=== PATIENT | female | born 1930 | race Caucasian/White ===

== ENCOUNTER 2019-06-13 15:53 | Observation (INO) ==
--- OUTSIDE RECORDS SUMMARY | 2019-06-13 15:57 | External Medical Summary | Continuity of Care Document ---
:1930 Author Name Prakash Anderson, Provider Address Unavailable Unavailable , Care Team Providers Name Role Phone Kendrick Barragan [email or web address] PCP, UNKNOWN Unavailable Unavailable Problems Active medical history not documented Allergies and Adverse Reactions Allergy history not documented Medications Medications not documented Procedures Procedures not documented Immunizations Immunizations not documented Plan of Treatment Planned Observations Planned Goals not documented Results No Known Results Results not documented
[2019-06-13] MEDS ORDERED: ONDANSETRON INJ 2 MG/ML 2 ML VIAL IV STA (16:06)
--- NOTE | 2019-06-13 16:27 | XRay Report ---
SINGLE VIEW CHEST CLINICAL HISTORY: Generalized weakness. FINDINGS: An AP, portable, upright chest radiograph is compared to study dated 01/13/2018. The examina tion is degraded by portable technique and patient rotation. A single lead cardiac pacemaker is uncha nged in position and partially obscures the left mid chest. The heart is enlarged and there is athero sclerotic calcification of the thoracic aorta. The pulmonary vasculature is noncongested. Chronic int erstitial thickening is similar to previous. Trace pleural effusions are suspected with bibasilar ate lectasis. No pneumothorax is seen. The skeletal structures are osteopenic. The bony thorax is grossly intact. IMPRESSION: 1. Cardiomegaly and cardiac pacemaker. There is no radiographic evidence of congestive failure. 2. Trace pleural effusions are suspected. Electronically signed by: Manfred Alvarado M.D. 06/13/2019 4:25 PM
[2019-06-13] MEDS ORDERED: GI COCKTAIL ED USE PO ONE (16:40)
[2019-06-13 16:44] LABS: Basophils # (auto) 0.02 K/uL (0-0.2); Basophils % (auto) 0.2 %; Eosinophils # (auto) 0.39 K/uL (0-0.5); Eosinophils % (auto) 4.3 %; Hematocrit (blood only) 39.5 % (37-47); Hemoglobin 13.2 g/dL (12.0-16.0); Immature Granulocytes # (auto) 0.02 K/uL (0.00-0.02); Immature Granulocytes % (auto) 0.2 %; Lymphocytes # (auto) 3.57 K/uL (1.2-3.4); Lymphocytes % (auto) 39.8 %; Mean Corpuscular Hemoglobin 30.4 pg (25-34); Mean Corpuscular Hgb Conc 33.4 g/dL (32-36); Mean Platelet Volume 10.7 fL (7.4-10.4); Monocytes # (auto) 0.66 K/uL (0.11-0.59); Monocytes % (auto) 7.4 %; Neutrophils # (auto) 4.31 K/uL (1.4-6.5); Neutrophils % (auto) 48.1 %; Platelet Count 310 K/uL (130-400); RDW Coefficient of Variation 13.9 % (11.5-14.5); RDW Standard Deviation 46.4 fL (36.4-46.3); Red Blood Count 4.34 M/uL (4.2-5.4); White Blood Count 8.97 K/uL (4.8-10.8)
[2019-06-13 16:52] LABS: Alanine Aminotransferase 25 U/L (12-78); Albumin Level 3.4 gm/dl (3.4-5.0); Aspartate Aminotransferase 37 U/L (15-37); BUN Creatinine Ratio 24.1 (10-20); Blood Urea Nitrogen 30 mg/dl (7-18); Calcium 9.6 mg/dl (8.5-10.1); Carbon Dioxide 29 mmol/L (21-32); Chloride 97 mmol/L (98-107); Creatinine Clr Calc Pharmacy 36.4 ml/min; Est GFR (African American) 44.4; Est GFR (Non-African American) 38.3; Glucose 215 mg/dl (70-99); Lipase 437 U/L (73-393); Potassium 3.9 mmol/L (3.5-5.1); Sodium 136 mmol/L (136-145)
[2019-06-13 16:53] LABS: INR 2.7 (0.9-1.1); Prothrombin Time 25.6 Seconds (9.0-12.0)
[2019-06-13 16:55] LABS: Influenza A virus by PCR Neg for Influ A (Neg); Influenza B virus by PCR Neg for Influ B (Neg)
[2019-06-13] MEDS ORDERED: SODIUM CHLORIDE 0.9% 500 ML IV ONE (16:56)
[2019-06-13 17:03] LABS: Albumin Globulin Ratio 0.6 (0.9-2); Alkaline Phosphatase 107 U/L (45-117); Bilirubin,Total 0.4 mg/dl (0.2-1); Globulin 5.5 gm/dl (2.5-4.0); Total Protein 8.9 gm/dl (6.4-8.2); Troponin I < 0.015 ng/ml (0-0.045)
[2019-06-13 17:09] LABS: Appearance Urine Clear (Clear); Bacteria Urine Automated Negative (Negative); Bilirubin Urine Negative (Negative); Blood Urine 1+ (Negative); Color Urine Yellow; Glucose Urine UA Negative (Negative); Ketones Urine Negative (Negative); Leukocyte Esterase Urine Trace (Negative); Nitrite Urine Negative (Negative); Protein Urine Trace (Negative); RBC Urine Automated 0-4 /hpf (0-4); Specific Gravity Urine 1.014 (1.000-1.030); Urobilinogen Urine Negative (Negative)
--- NOTE | 2019-06-13 17:48 | CT Scan Report ---
CT SCAN OF THE ABDOMEN AND PELVIS WITHOUT IV CONTRAST CLINICAL HISTORY: Nausea and vomiting. COMPARISON STUDY: No priors. TECHNIQUE: CT scan of the abdomen and pelvis is performed from the lung bases to the proximal femora. Images are reviewed in the axial, sagittal, and coronal planes. IV contrast was not administered for this examination as per the referring clinician. Note that the examination was performed in signific antly suboptimal fashion without oral and IV contrast. A dose lowering technique was utilized adherin g to the principles of ALARA. CT DOSE: 1397.11 mGy.cm FINDINGS: Lung bases: The heart is enlarged and without pericardial effusion. A pacemaker lead is noted. There is a small hiatal hernia. A 7 mm pleural-based nodule is seen at the left lung base. The lung bases a re otherwise clear noting bibasilar scarring/atelectasis. Liver: The unenhanced liver is normal in size, contour, and attenuation. There is no intrahepatic mukesh iary ductal dilatation. Gallbladder: Unremarkable. Spleen: Normal in size and attenuation. Pancreas: The unenhanced pancreas is moderately atrophic and grossly unremarkable. Adrenal glands: Unremarkable. Kidneys: The unenhanced kidneys are atrophic and without hydronephrosis. There are no renal calculi i dentified. There is no evidence of contour deforming renal mass lesion. A retroaortic left renal vein is incidentally noted. Abdominal vasculature: The abdominal aorta is normal in course and caliber noting moderate atheroscle rotic calcification. Bowel: There is no bowel obstruction. There is advanced colonic diverticulosis without CT evidence of acute diverticulitis. Mild fecal retention is noted throughout the colon. The appendix is not ident ified and reported surgically absent. Peritoneum: There is no intraperitoneal free air or abdominal ascites. There is a fat-containing umbi lical hernia. Lymphadenopathy: None. Pelvic viscera: The bladder is normal as visualized. The uterus is surgically absent. No adnexal lesi on is seen. Skeletal structures: The skeletal structures are osteopenic. Mild to moderate lumbosacral spondylosis is observed. No lytic or blastic lesions are seen. IMPRESSION: 1. Suboptimal examination without oral and IV contrast. 2. No acute infectious or inflammatory findings are seen in the abdomen or pelvis. 3. Advanced colonic diverticulosis without CT evidence of acute diverticulitis. 4. Cardiomegaly and cardiac pacemaker. 5. Additional findings as above. ACT 112: Negative or not required by law. Electronically signed by: Manfred Alvarado M.D. 06/13/2019 5:46 PM
--- NOTE | 2019-06-13 18:40 | History & Physical Report ---
Date of Service June 13, 2019 Assessment & Plan (1) MARKUS (acute kidney injury): (2) Dehydration: (3) Weakness: (4) Nausea: (5) Vomiting: (6) Pickwickian syndrome: (7) DM II (diabetes mellitus, type II), controlled: (8) DNR (do not resuscitate) discussion: Hold Lasix, Obs, Med/Surg, IVFs, O2, SSI, likely here Less than 2 MNs, monitor daily labs, continue OP meds except Lasix and Aldactone, On warfarin and therapeutic. History of Present Illness 89 yo female c extensive PMH to include CKD, Obesity, Chronic combined CHF, DVT, AFIB, Insomnia, BITA, Depression, DM II, SSS, Valvular HD, HTN, HLD, and on Home O2 sec to Pickwickian syndrome presents w profound weakness and 2-3 days of Nausea, vomiting, and a decreased appetite. She was found to have MARKUS and Dehydration on her labs. No signs of infection. Flu was negative, but she looks like she has the flu. Primary Care Provider: Gely Gutierrez DO Allergies Allergy/AdvReac Type Severity Reaction Status Date / Time dicyclomine Allergy Intermediate HIVES Verified 06/13/19 16:47 Sulfa (Sulfonamide Allergy Intermediate Vomiting Verified 06/13/19 16:47 Antibiotics) tramadol Allergy Intermediate GI SYMPTOMS Verified 06/13/19 16:47 lisinopril AdvReac Severe RENAL Verified 06/13/19 16:47 COMPLICATIONS PER [facility]. lorazepam AdvReac Intermediate Drowsy Verified 06/13/19 16:47 oxycodone AdvReac Intermediate STATES Verified 06/13/19 16:47 INCREASED SEDATION WITH SEVERE N/V=OXYCODONE phentermine AdvReac Mild NERVOUSNESS Verified 06/13/19 16:47 & CONSTIPATION Home Medications Home Medications Medication Instructions Recorded Confirmed Type atorvastatin 40 mg PO DAILY 01/07/18 06/13/19 History cholecalciferol (vitamin D3) 2,000 unit PO DAILY 01/07/18 06/13/19 History sennosides-docusate sodium 2 tab PO DAILY 01/07/18 06/13/19 History [Senna-S] digoxin 125 mcg PO DAILY 06/13/19 06/13/19 History furosemide [Lasix] See Rx Instructions .ROUTE .COMPLEX 06/13/19 06/13/19 History glimepiride 2 mg PO QDB 06/13/19 06/13/19 History metformin 500 mg PO BIDM 06/13/19 06/13/19 History metoprolol tartrate See Rx Instructions .ROUTE .COMPLEX 06/13/19 06/13/19 History spironolactone 25 mg PO 3XWK 06/13/19 06/13/19 History warfarin See Rx Instructions .ROUTE .COMPLEX 06/13/19 06/13/19 History Past Med/Surg History Medical History Chronic kidney disease Congestive heart failure Deep vein thrombosis Depression Diabetes mellitus, type 2 Hypertension On home oxygen therapy Pacemaker Rheumatoid arthritis Valvular heart disease Surgical History History of hysterectomy History of total knee replacement Social History Preferred Language: Lao Communication Ability: Effective Visual Impairment: Limited Stoner Out Required: No Beliefs That Will Affect Care: None Current Living Situation: Alone Feels Safe at Home: Yes Smoking Status: Never smoker Hx Alcohol Use: No Hx Substance Use: No Physical Exam Physical Exam: ROS-No Headache, No Visual Changes, + Nausea, + Vomiting, No Fever, No Chills, No Neck Pain or Stiffness, No Chest Pain, No Palpitations, No SOB, No LANDEROS, No Cough, No Sputum, No Wheezing, No Abdominal Pain, No Diarrhea, No Hematemesis, No Hemoptysis, No Unexpected Weight Loss, No Flank pain, No Melena, No Hematochezia, No Frequency, No Urgency, No Burning, No Hematuria, No Rashes, No Diaphoresis. Appetite is Normal, Weak Physical Exam Gen-AAO x 3, NAD, Afebrile, Pleasant, obese Head-NCAT, EOMI, PERRLA, Anicteric Sclera, No Posterior Pharyngeal Erythema Neck-Supple, No JVD, No Thyromegaly, No Masses, No LAD, No Bruits Lungs-Clear to Auscultation Bilaterally, No Rales, No Rhonchi, No Wheezing, No Crepitus Chest-No S4, +S1, +S2, No S3, No Murmurs, No Rubs, No Gallops, No Ectopy Abdomen-Soft, Bowel Sounds Present, Non Tender, Non Distended, No Hepatomegaly, No Splenomegaly, No Palpable Masses, No Rebound, No Rigidity, No Guarding Musculoskeletal-Full Range of Motion Bilaterally, No CVAT Extremities-No Cyanosis, No Clubbing, No Edema Nuero-Cranial Nerves II-XII grossly intact, Motor WNL, DTRs WNL, Strength WNL, Non Focal Psych-Normal Mood Results & Data Vital Signs (Past 12 Hours) Vital Signs Temp Pulse Resp BP Pulse Ox 06/13/19 16:41 72 30 H 166/70 H 96 06/13/19 16:34 118 H 16 06/13/19 16:08 95 06/13/19 16:07 70 25 H 174/125 H 97 06/13/19 16:05 36.4 C L 81 22 174/125 H 95 06/13/19 16:00 91 H 28 H 92 Allergies dicyclomine Allergy (Intermediate, Verified 06/13/19 16:47) HIVES Sulfa (Sulfonamide Antibiotics) Allergy (Intermediate, Verified 06/13/19 16:47) Vomiting tramadol Allergy (Intermediate, Verified 06/13/19 16:47) GI SYMPTOMS lisinopril Adverse Reaction (Severe, Verified 06/13/19 16:47) RENAL COMPLICATIONS PER [facility]. lorazepam Adverse Reaction (Intermediate, Verified 06/13/19 16:47) Drowsy oxycodone Adverse Reaction (Intermediate, Verified 06/13/19 16:47) STATES INCREASED SEDATION WITH SEVERE N/V=OXYCODONE phentermine Adverse Reaction (Mild, Verified 06/13/19 16:47) NERVOUSNESS & CONSTIPATION Height/Weight/Isolation Height 5 ft 3 in Weight 104.6 kg Chemistry 06/13/19 15:45 Sodium 136 Potassium 3.9 Chloride 97 L Carbon Dioxide 29 Anion Gap 10.0 BUN 30 H Creatinine 1.26 H Glucose 215 H Urinalysis 06/13/19 16:35 Urine Color Yellow Urine Appearance Clear Urine pH 5.0 Ur Specific [place] 1.014 Urine Protein Trace H Urine Glucose (UA) Negative Urine Ketones Negative Urine Blood 1+ H Urine Nitrite Negative Urine Bilirubin Negative Code Status & VTE Plan VTE Prophylaxis Plan VTE Prophylaxis will be ordered: Yes
[2019-06-13] MEDS ORDERED: GLUCOSE 10 TABS/TUBE PO PRN (19:42)
[2019-06-13] MEDS ORDERED: GLUCAGON FOR INJ 1 MG VIAL SQ PRN (19:42)
[2019-06-13] MEDS ORDERED: CARBOHYDRATES FOR HYPOGLYCEMIA PO PRN (19:42)
[2019-06-13] MEDS ORDERED: DEXTROSE 50% 50 ML SYRINGE IV PRN (19:42)
[2019-06-13] MEDS ORDERED: ONDANSETRON INJ 2 MG/ML 2 ML VIAL IV PRN (19:42)
[2019-06-13] MEDS ORDERED: ACETAMINOPHEN 325 MG TAB PO PRN (19:42)
[2019-06-13] MEDS ORDERED: GLUCOSE 40% GEL 15 GM TUBE PO PRN (19:42)
[2019-06-13] MEDS ORDERED: ALUMINUM/MAGNESIUM SUSP 30 ML UDC PO PRN (19:42)
[2019-06-13] MEDS ORDERED: PHARMACY GLYCEMIC MGMT CONSULT PRN (19:46)
--- NOTE | 2019-06-13 19:54 | Emergency Department Note ---
Entered by Mari Andre acting as a scribe for History of Present Illness General Chief complaint: Illness Stated complaint: vomitting Time Seen by Provider: 06/13/19 15:56 Source: patient History of Present Illness Onset (ago): week(s) 1 Pain Consistency: + constant Relieved By: + none Exacerbated By: + none Associated symptoms: + denies other symptoms (denies abdominal pain and diarrhea), + malaise, + nausea/vomiting, + shortness of breath and + other (spitting up, burping); no cough, no fever/chills, no headaches and no loss of appetite Treatments prior to arrival: other (Zofran) The patient is a 89 year old female who presents to the Emergency Room with complaints of nausea, fatigue, and diaphoresis which started about a week ago and worsened today. EMS reports that the patient has been diaphoretic for a week. She is on 2 L of oxygen at home. The patient has a history of A fib, diabetes, and has a pacemaker. She also complains of fatigue, nausea, spitting up, and burping. EMS reported that the patient did vomit at home. She was given Zofran in ambulance, which seemed to help. She denies fever, headache, loss of appetite, cough, abdominal pain and diarrhea. She reports that she has been drinking plenty of water. She also complains of intermittent shortness of breath. The patient states that she has not been around anyone who is sick lately, and has been staying in her apartment for the past few weeks. Home Medications Home Medications Medication Instructions Recorded Confirmed Type atorvastatin 40 mg PO DAILY 01/07/18 06/13/19 History cholecalciferol (vitamin D3) 2,000 unit PO DAILY 01/07/18 06/13/19 History sennosides-docusate sodium 2 tab PO DAILY 01/07/18 06/13/19 History [Senna-S] digoxin 125 mcg PO DAILY 06/13/19 06/13/19 History furosemide [Lasix] See Rx Instructions .ROUTE .COMPLEX 06/13/19 06/13/19 History glimepiride 2 mg PO QDB 06/13/19 06/13/19 History metformin 500 mg PO BIDM 06/13/19 06/13/19 History metoprolol tartrate See Rx Instructions .ROUTE .COMPLEX 06/13/19 06/13/19 History spironolactone 25 mg PO 3XWK 06/13/19 06/13/19 History warfarin See Rx Instructions .ROUTE .COMPLEX 06/13/19 06/13/19 History Allergies Allergy/AdvReac Type Severity Reaction Status Date / Time dicyclomine Allergy Intermediate HIVES Verified 06/13/19 16:47 Sulfa (Sulfonamide Allergy Intermediate Vomiting Verified 06/13/19 16:47 Antibiotics) tramadol Allergy Intermediate GI SYMPTOMS Verified 06/13/19 16:47 lisinopril AdvReac Severe RENAL Verified 06/13/19 16:47 COMPLICATIONS PER [facility]. lorazepam AdvReac Intermediate Drowsy Verified 06/13/19 16:47 oxycodone AdvReac Intermediate STATES Verified 06/13/19 16:47 INCREASED SEDATION WITH SEVERE N/V=OXYCODONE phentermine AdvReac Mild NERVOUSNESS Verified 06/13/19 16:47 & CONSTIPATION Past Med/Surg History Medical History (Updated 06/13/19 @ 18:39 by Ashok Andrews DO) MARKUS (acute kidney injury) Chronic kidney disease Congestive heart failure Deep vein thrombosis Dehydration Depression Diabetes mellitus, type 2 Hypertension On home oxygen therapy Pacemaker Rheumatoid arthritis Valvular heart disease Surgical History History of hysterectomy History of total knee replacement Social History Preferred Language: Belarusian Communication Ability: Effective Visual Impairment: Limited Table Attendant Required: No Beliefs That Will Affect Care: None Current Living Situation: Alone Feels Safe at Home: Yes Smoking Status: Never smoker Hx Alcohol Use: No Hx Substance Use: No Review of Systems See HPI for pertinent positives & negatives. and A total of 10 systems reviewed and were otherwise negative Physical Exam Vital Signs Vital Signs - 24 hr 06/13/19 16:00 06/13/19 16:05 06/13/19 16:07 Temperature 36.4 C L Temperature Source Oral Pulse Rate 91 H 81 70 Pulse Rate from SpO2 Sensor 94 H 77 Respiratory Rate 28 H 22 25 H Blood Pressure 174/125 H 174/125 H Blood Pressure Mean 141 139 Pulse Oximetry 92 95 97 Oxygen Delivery Method Nasal Cannula Oxygen Flow Rate 2 Sepsis Recent Fever Within 48 Hours No Sepsis Action Taken by Nursing No Action Required 06/13/19 16:08 06/13/19 16:34 06/13/19 16:41 Temperature Temperature Source Pulse Rate 118 H 72 Pulse Rate from SpO2 Sensor 76 Respiratory Rate 16 30 H Blood Pressure 166/70 H Blood Pressure Mean 88 Pulse Oximetry 95 96 Oxygen Delivery Method Nasal Cannula Oxygen Flow Rate 2 Sepsis Recent Fever Within 48 Hours Sepsis Action Taken by Nursing GENERAL: Awake, Appears fatigued. On nasal cannula. HENT: Normocephalic, atraumatic. EYES: Normal conjunctiva. Sclera non-icteric. NECK: Supple. No nuchal rigidity. RESPIRATORY: Diminished lung bases. Normal respiratory effort. CARDIAC: Normal rate. Irregular rhythm. Extremities warm and well perfused. GI: Soft, non-distended. No tenderness to palpation. No rebound or guarding. RECTAL: Deferred. MUSCULOSKELETAL: Atraumatic. Chest examination reveals no tenderness. LOWER EXTREMITIES: 1+ bilateral pedal edema. Calves are equal size bilaterally. NEURO: Normal sensorium. No sensory or motor deficits noted. No facial droop. SKIN: Warm and slightly diaphoretic. No jaundice noted. Course Course 1558: Past medical records reviewed. The patient was evaluated in room C10. A complete history and physical exam was performed. 1803: I updated the patient on imaging results. I discussed the possibility of staying in the hospital for further treatment. The patient was agreeable to this. 180: I spoke to Dr. Andrews, [facility] hospitalist, who agreed to take over care of the patient. The patient understands and is agreeable to this plan. The patient will stay for further evaluation. Administered Medications Discontinued Medications Al Hydrox/Mg Hydrox/Simethicone () 1 dose PO ONE ONE Stop: 06/13/19 16:41 Last Admin: 06/13/19 16:49 Dose: 1 dose Documented by: [id number] Sodium Chloride (Nss) 500 mls @ 999 mls/hr IV .Q31M ONE Stop: 06/13/19 17:26 Last Infusion: 06/13/19 17:40 Dose: 0 mls/hr Documented by: [id number] Admin: 06/13/19 17:07 Dose: 999 mls/hr Documented by: [id number] Ondansetron HCl (Zofran) 4 mg IV NOW STA Stop: 06/13/19 16:07 Last Admin: 06/13/19 16:22 Dose: 4 mg Documented by: [id number] Medical Decision Making Differential Diagnosis Differential diagnosis includes: appendicitis, diverticulitis, PUD, biliary pathology, UTI, pancreatitis, obstruction, mesenteric ischemia, aortic pathology, infections, inflammatory bowel disease, renal colic, as well as others were entertained. Medical Records Attestation: I reviewed the patient's medical records. Home Medications Current Medication List: was personally reviewed by me Laboratory Data Attestation: I reviewed the patient's lab results. Result diagrams: 06/13/19 15:45 06/13/19 15:45 Lab Results 06/13/19 06/13/19 06/13/19 Range/Units 15:45 15:45 15:45 WBC 8.97 (4.8-10.8) K/uL RBC 4.34 (4.2-5.4) M/uL Hgb 13.2 (12.0-16.0) g/dL Hct 39.5 (37-47) % MCV 91.0 (80-100) fL MCH 30.4 (25-34) pg MCHC 33.4 (32-36) g/dL RDW Std Deviation 46.4 H (36.4-46.3) fL RDW Coeff of Irena 13.9 (11.5-14.5) % Plt Count 310 (130-400) K/uL MPV 10.7 H (7.4-10.4) fL Immature Gran % (Auto) 0.2 % Neut % (Auto) 48.1 % Lymph % (Auto) 39.8 % [place] % (Auto) 7.4 % Eos % (Auto) 4.3 % Baso % (Auto) 0.2 % Immature Gran # (Auto) 0.02 (0.00-0.02) K/uL Neut # (Auto) 4.31 (1.4-6.5) K/uL Lymph # (Auto) 3.57 H (1.2-3.4) K/uL [place] # (Auto) 0.66 H (0.11-0.59) K/uL Eos # (Auto) 0.39 (0-0.5) K/uL Baso # (Auto) 0.02 (0-0.2) K/uL PT 25.6 H (9.0-12.0) Seconds INR 2.7 H (0.9-1.1) Sodium 136 (136-145) mmol/L Potassium 3.9 (3.5-5.1) mmol/L Chloride 97 L (98-107) mmol/L Carbon Dioxide 29 (21-32) mmol/L Anion Gap 10.0 (3-11) BUN 30 H (7-18) mg/dl Creatinine 1.26 H (0.6-1.2) mg/dl Est Cr Clr Drug Dosing 36.4 ml/min Est GFR ( Amer) 44.4 Est GFR (Non-Af Amer) 38.3 BUN/Creatinine Ratio 24.1 H (10-20) Glucose 215 H (70-99) mg/dl Calcium 9.6 (8.5-10.1) mg/dl Magnesium 2.0 (1.8-2.4) mg/dl Total Bilirubin 0.4 (0.2-1) mg/dl AST 37 (15-37) U/L ALT 25 (12-78) U/L Alkaline Phosphatase 107 (45-117) U/L Troponin I < 0.015 (0-0.045) ng/ml Total Protein 8.9 H (6.4-8.2) gm/dl Albumin 3.4 (3.4-5.0) gm/dl Globulin 5.5 H (2.5-4.0) gm/dl Albumin/Globulin Ratio 0.6 L (0.9-2) Lipase 437 H (73-393) U/L TSH 3.070 (0.300-4.500) uIu/ml Urine Color Urine Appearance (Clear) Urine pH (4.5-7.5) Ur Specific [place] (1.000-1.030) Urine Protein (Negative) Urine Glucose (UA) (Negative) Urine Ketones (Negative) Urine Blood (Negative) Urine Nitrite (Negative) Urine Bilirubin (Negative) Urine Urobilinogen (Negative) Ur Leukocyte Esterase (Negative) Urine WBC (Auto) (0-5) /hpf Urine RBC (Auto) (0-4) /hpf U Hyaline Cast (Auto) (0-5) /lpf U Epithel Cells (Auto) (0-5) /lpf Urine Bacteria (Auto) (Negative) Influenza Type A (PCR) (Neg) Influenza Type B (PCR) (Neg) 06/13/19 06/13/19 Range/Units 16:15 16:35 WBC (4.8-10.8) K/uL RBC (4.2-5.4) M/uL Hgb (12.0-16.0) g/dL Hct (37-47) % MCV (80-100) fL MCH (25-34) pg MCHC (32-36) g/dL RDW Std Deviation (36.4-46.3) fL RDW Coeff of Irena (11.5-14.5) % Plt Count (130-400) K/uL MPV (7.4-10.4) fL Immature Gran % (Auto) % Neut % (Auto) % Lymph % (Auto) % [place] % (Auto) % Eos % (Auto) % Baso % (Auto) % Immature Gran # (Auto) (0.00-0.02) K/uL Neut # (Auto) (1.4-6.5) K/uL Lymph # (Auto) (1.2-3.4) K/uL [place] # (Auto) (0.11-0.59) K/uL Eos # (Auto) (0-0.5) K/uL Baso # (Auto) (0-0.2) K/uL PT (9.0-12.0) Seconds INR (0.9-1.1) Sodium (136-145) mmol/L Potassium (3.5-5.1) mmol/L Chloride (98-107) mmol/L Carbon Dioxide (21-32) mmol/L Anion Gap (3-11) BUN (7-18) mg/dl Creatinine (0.6-1.2) mg/dl Est Cr Clr Drug Dosing ml/min Est GFR ( Amer) Est GFR (Non-Af Amer) BUN/Creatinine Ratio (10-20) Glucose (70-99) mg/dl Calcium (8.5-10.1) mg/dl Magnesium (1.8-2.4) mg/dl Total Bilirubin (0.2-1) mg/dl AST (15-37) U/L ALT (12-78) U/L Alkaline Phosphatase (45-117) U/L Troponin I (0-0.045) ng/ml Total Protein (6.4-8.2) gm/dl Albumin (3.4-5.0) gm/dl Globulin (2.5-4.0) gm/dl Albumin/Globulin Ratio (0.9-2) Lipase (73-393) U/L TSH (0.300-4.500) uIu/ml Urine Color Yellow Urine Appearance Clear (Clear) Urine pH 5.0 (4.5-7.5) Ur Specific [place] 1.014 (1.000-1.030) Urine Protein Trace H (Negative) Urine Glucose (UA) Negative (Negative) Urine Ketones Negative (Negative) Urine Blood 1+ H (Negative) Urine Nitrite Negative (Negative) Urine Bilirubin Negative (Negative) Urine Urobilinogen Negative (Negative) Ur Leukocyte Esterase Trace H (Negative) Urine WBC (Auto) 1-5 (0-5) /hpf Urine RBC (Auto) 0-4 (0-4) /hpf U Hyaline Cast (Auto) 1-5 (0-5) /lpf U Epithel Cells (Auto) 10-20 H (0-5) /lpf Urine Bacteria (Auto) Negative (Negative) Influenza Type A (PCR) Neg for Influ A (Neg) Influenza Type B (PCR) Neg for Influ B (Neg) Imaging Data Radiologist's Impression: Radiology results as stated below per my review and the radiologist's interpretation: SINGLE VIEW CHEST CLINICAL HISTORY: Generalized weakness. FINDINGS: An AP, portable, upright chest radiograph is compared to study dated 01/13/2018. The examination is degraded by portable technique and patient rotatio n. A single lead cardiac pacemaker is unchanged in position and partially obscures the left mid chest. The heart is enlarged and there is atherosclerotic calcification of the thoracic aorta. The pulmonary vasculature is noncongested. Chronic interstitial thickening is similar to previous. Trace pleural effusions are suspected with bibasilar atelectasis. No pneumothorax is seen. The skeletal structures are osteopenic. The bony thorax is grossly intact. IMPRESSION: 1. Cardiomegaly and cardiac pacemaker. There is no radiographic evidence of congestive failure. 2. Trace pleural effusions are suspected. Electronically signed by: Manfred Alvarado M.D. 06/13/2019 4:[address] SCAN OF THE ABDOMEN AND PELVIS WITHOUT IV CONTRAST CLINICAL HISTORY: Nausea and vomiting. COMPARISON STUDY: No priors. TECHNIQUE: CT scan of the abdomen and pelvis is performed from the lung bases to the proximal femora. Images are reviewed in the axial, sagittal, and coronal planes. IV contrast was not administered for this examination as per the referring clinician. Note that the examination was performed in significantly suboptimal fashion without oral and IV contrast. A dose lowering technique was utilized adhering to the principles of ALARA. CT DOSE: 1397.11 mGy.cm FINDINGS: Lung bases: The heart is enlarged and without pericardial effusion. A pacemaker lead is noted. There is a small hiatal hernia. A 7 mm pleural-based nodule is seen at the left lung base. The lung bases are otherwise clear noting bibasilar scarring/atelectasis. Liver: The unenhanced liver is normal in size, contour, and attenuation. There is no intrahepatic biliary ductal dilatation. Gallbladder: Unremarkable. Spleen: Normal in size and attenuation. Pancreas: The unenhanced pancreas is moderately atrophic and grossly unremarkable. Adrenal glands: Unremarkable. Kidneys: The unenhanced kidneys are atrophic and without hydronephrosis. There are no renal calculi identified. There is no evidence of contour deforming renal mass lesion. A retroaortic left renal vein is incidentally noted. Abdominal vasculature: The abdominal aorta is normal in course and caliber noting moderate atherosclerotic calcification. Bowel: There is no bowel obstruction. There is advanced colonic diverticulosis without CT evidence of acute diverticulitis. Mild fecal retention is noted throughout the colon. The appendix is not identified and reported surgically absent. Peritoneum: There is no intraperitoneal free air or abdominal ascites. There is a fat-containing umbilical hernia. Lymphadenopathy: None. Pelvic viscera: The bladder is normal as visualized. The uterus is surgically absent. No adnexal lesion is seen. Skeletal structures: The skeletal structures are osteopenic. Mild to moderate mario mbosacral spondylosis is observed. No lytic or blastic lesions are seen. IMPRESSION: 1. Suboptimal examination without oral and IV contrast. 2. No acute infectious or inflammatory findings are seen in the abdomen or pelvis. 3. Advanced colonic diverticulosis without CT evidence of acute diverticulitis. 4. Cardiomegaly and cardiac pacemaker. 5. Additional findings as above. ACT 112: Negative or not required by law. Electronically signed by: Manfred Alvarado M.D. 06/13/2019 5:46 PM ECG Data Attestation: I personally reviewed and interpreted this ECG as follows: Indication: + diaphoresis Rate (beats per minute): 68 Rhythm: + atrial fibrillation ECG Intervals/blocks: + Right Bundle branch block ECG ST segments: + T-wave inversions (diffuse) ECG Findings: + Other (ocassional ventricular paced complexes) Comparison ECG Date: from (01/08/18) Change: the following changes noted (Now predominately A-fib) Blood Pressure Blood Pressure Findings: Elevated blood pressure Blood Pressure Disposition: further management by hospitalist SARANYA Narrative Continuous Cardiac Monitoring: An order was placed for continuous cardiac monitoring. The monitor shows a rate of 68 with A fib. Patient is an 89-year-old female with a past medical history of congestive heart failure, pacemaker, A. fib RVR on Coumadin, sick sinus syndrome with pacemaker, type 2 diabetes, CKD, and pickwickian syndrome presenting today via ambulance with report of vomiting. States over the past 3 weeks has been quite diap horetic and feeling weak. Denies chest pain. Breathing is at baseline. Denies fluid swelling. Denies fever. Denies diarrhea. Denies URI symptoms. Minimal her was Zofran for EMS on the way over. Basic labs, EKG, troponin were completed. CT of abdomen pelvis was ordered to evaluate for other intra- abdominal pathology although she does not have significant abdominal tenderness. INR was checked. Given some additional Zofran here as well as a GI cocktail. Seems it was be belching more than vomiting. Give small fluid bolus creatinine appears a little bit higher than the baseline available in the system here. Doubt intracranial pathology. Influenza testing was negative. No evidence of hepatitis and doubt this represents pancreatitis. No evidence of UTI. TSH within normal is. Troponin undetectable. CT abdomen pelvis without acute pathology. Reevaluation the patient still in some discomfort and appears quite weak. Discussed with her and her son recommendation for further observation ongoing in the hospital to reasonable given her complaints. States she still cannot eat. They were in agreement with plan. Discussed with the [facility] hospitalist. Impression & Plan Nausea, Weakness Discharge Plan Visit Data Chief Complaint: Illness Stated Complaint: vomitting ED Provider: Vinicio Barclay Discharge Problem: Nausea, Weakness The scribe's documentation has been prepared under my direction and personally reviewed by me in its entirety. I confirm that the note above accurately reflects all work, treatment, procedures, and medical decision making performed by me.
--- NOTE | 2019-06-13 20:07 | Pharmacy Report ---
Glycemic Control Consultation - Date of Service June 13, 2019 - Scope Scope: Glycemic Pharmacist consulted by Dr Andrews on 06/13/19 for glycemic control and to write orders per [facility] inpatient glycemic control protocol - Objective Weight: 104.6 kg Accuchecks BSG (last 24hrs): 06/13/19 15:45 Glucose 215 H Laboratory Data (last 24hrs): 06/13/19 15:45 Potassium 3.9 Carbon Dioxide 29 Anion Gap 10.0 Creatinine 1.26 H Est Cr Clr Drug Dosing 36.4 - Recent Pertinent Medications Outpatient Anti-diabetic Regimen: * Metformin 500 mg PO BIDM * Glimepiride 2 mg PO daily with breakfast * A1c pending for AM of 06/14 - Assessment & Plan Assessment & Plan: ASSESSMENT: * JERICHO is an 89 year old female who presents to [facility] ED with several days of nausea, fatigue, and diaphoresis * Patient presumed to be in MARKUS at time of admission (SCr: 1.26 mg/dL) - SCr from 2018: 0.89 mg/dL. * BSG in ED of 215 mg/dL at 1545 - pharmacy consulted at 1943 * No insulin administered so far today PLAN FOR INPATIENT GLYCEMIC CONTROL: * Holding outpatient oral diabetes medications * Basal insulin * Lantus 15 units BID * Bolus insulin * NovoLog per scale ACHS or Q6hrs while NPO * Goal Range: Low 120 mg/dL - High 150 mg/dL * Correction Factor: 30 mg/dL/unit * Nutritional / Prandial insulin per carb ratio of 1 unit per 10 grams CHO consumed * Overnight check at 0200 tonight with same parameters * Please note that the plan above was derived based on current level of insulin resistance and hospital stress. These recommendations are appropriate for inpatient admission only. Plan of care upon discharge will need to be reassessed to avoid potential outpatient hypo/hyperglycemia. Thank you.
[2019-06-13] MEDS: METOPROLOL TARTRATE 100 MG TAB PO SCH (20:34)
[2019-06-13] MEDS: NSS + 20MEQ KCL 20 MEQ/1,000 ML BAG IV SCH (20:34)
[2019-06-13] MEDS: INSULIN ASPART 100 UNITS/ML 3 ML PEN SC SCH (20:37)
[2019-06-13] MEDS ORDERED: INSULIN GLARGINE SOLOSTAR 100 UNITS/ML 3 ML PEN SC SCH (21:00)
[2019-06-14] MEDS ORDERED: INSULIN ASPART 100 UNITS/ML 3 ML PEN SC SCH (02:00)
[2019-06-14 02:10] LABS: Hematocrit (blood only) 36.3 % (37-47); Hemoglobin 11.9 g/dL (12.0-16.0); Mean Corpuscular Hgb Conc 32.8 g/dL (32-36); Mean Corpuscular Volume 91.4 fL (80-100); Mean Platelet Volume 10.2 fL (7.4-10.4); Platelet Count 262 K/uL (130-400); RDW Coefficient of Variation 13.7 % (11.5-14.5); RDW Standard Deviation 45.3 fL (36.4-46.3); Red Blood Count 3.97 M/uL (4.2-5.4); White Blood Count 6.82 K/uL (4.8-10.8)
[2019-06-14 02:19] LABS: INR 2.6 (0.9-1.1); Prothrombin Time 25.1 Seconds (9.0-12.0)
[2019-06-14 02:27] LABS: Alanine Aminotransferase 21 U/L (12-78); Albumin Level 2.9 gm/dl (3.4-5.0); Amylase 64 U/L (25-115); Aspartate Aminotransferase 32 U/L (15-37); BUN Creatinine Ratio 25.7 (10-20); Blood Urea Nitrogen 27 mg/dl (7-18); Calcium 8.8 mg/dl (8.5-10.1); Carbon Dioxide 33 mmol/L (21-32); Chloride 102 mmol/L (98-107); Creatinine Clr Calc Pharmacy 44.1 ml/min; Est GFR (African American) 55.9; Est GFR (Non-African American) 48.3; Glucose 210 mg/dl (70-99); Lipase 270 U/L (73-393); Potassium 4.3 mmol/L (3.5-5.1); Sodium 140 mmol/L (136-145)
[2019-06-14 02:32] LABS: Albumin Globulin Ratio 0.6 (0.9-2); Alkaline Phosphatase 85 U/L (45-117); Bilirubin,Total 0.4 mg/dl (0.2-1); Globulin 4.8 gm/dl (2.5-4.0); Total Protein 7.7 gm/dl (6.4-8.2); Troponin I < 0.015 ng/ml (0-0.045)
[2019-06-14 05:52] LABS: Estimated Average Glucose 206 mg/dl; Hemoglobin A1C 8.8 % (4.5-5.6)
[2019-06-14] MEDS: NSS + 20MEQ KCL 20 MEQ/1,000 ML BAG IV SCH ×2 (06:27→15:46)
[2019-06-14] MEDS ORDERED: INSULIN GLARGINE SOLOSTAR 100 UNITS/ML 3 ML PEN SC SCH (09:00)
[2019-06-14] MEDS ORDERED: SPIRONOLACTONE 25 MG TAB PO SCH (09:00)
[2019-06-14] MEDS: METOPROLOL TARTRATE 100 MG TAB PO SCH ×2 (09:33→20:23)
[2019-06-14] MEDS: DIGOXIN 0.125 MG TAB PO SCH (09:34)
[2019-06-14] MEDS: DOCUSATE SODIUM/SENNA 50/8.6MG TAB PO SCH (09:34)
[2019-06-14] MEDS: CHOLECALCIFEROL 1,000 UNITS 25 MCG TAB PO SCH (09:36)
[2019-06-14] MEDS: ATORVASTATIN 40 MG TAB PO SCH (09:37)
[2019-06-14] MEDS: INSULIN ASPART 100 UNITS/ML 3 ML PEN SC SCH ×4 (09:51→20:20)
--- NOTE | 2019-06-14 10:27 | Pharmacy Report ---
Pharmacy Glycemic Short Note 2 - Date of Service June 14, 2019 - Glycemic Short BSG Results (Last 24 hours): 06/13/19 06/13/19 06/14/19 15:45 20:03 01:51 Glucose 215 H POC Glucose 283 H 227 H 06/14/19 06/14/19 06/14/19 01:57 09:44 09:45 Glucose 210 H POC Glucose 312 H* 284 H OUTPATIENT ANTIDIABETIC REGIMEN: * Metformin 500 mg PO BIDM * Glimepiride 2 mg PO daily * HbA1c: 8.8% (06/14/19) ASSESSMENT: * LR admitted last evening - received 15 units of Lantus and 8 units of Novolog overnight * BSG this morning of 312 mg/dL was obtained after patient ate breakfast - will cover carbs only * IV fluids NS w/ 20 mEq of K+ infusing at 100 mL/hr PLAN FOR INPATIENT GLYCEMIC CONTROL: * Hold outpatient oral diabetes medications * Basal insulin * Lantus 18 units SQ this morning * Lantus scale starting this evening (see EHR for details) * Bolus insulin * NovoLog per scale ACHS or Q6hrs while NPO * Goal Range: Low 120 mg/dL - High 150 mg/dL * Correction Factor: 25 mg/dL/unit * Nutritional / Prandial insulin per carb ratio of 1 unit per 8 grams CHO consumed PLAN FOR DISCHARGE: * A1c of 8.8% demonstrates poor glycemic control (goal for this patient would be less than 8%) * If nausea/vomiting thought to be unrelated to metformin, reasonable to consider uptitrating metformin in 500 mg increments weekly to maximum dose of 1000 mg PO BIDM * Otherwise, may consider addition of third oral agent such as linagliptin 5 mg PO daily * This agent is generally well-tolerated with a low incidence of hypoglycemia
[2019-06-14] MEDS ORDERED: WARFARIN SOD 5 MG TAB PO SCH (16:00)
[2019-06-14] MEDS: INSULIN GLARGINE SOLOSTAR 100 UNITS/ML 3 ML PEN SC SCH (20:21)
--- NOTE | 2019-06-14 22:38 | Hospitalist Progress Note ---
Date of Service June 14, 2019 Assessment & Plan (1) MARKUS (acute kidney injury): Baseline serum creatinine 0.9. Creatinine at time of admission 1.26. Probable acute kidney injury secondary to N&V. Received IV fludis. Creatinine today = 1.04. Follow. (2) Vomiting: No acute findings on CT of abdomen and pelvis. Slight elevation of lipase; doubt pancreatitis. Probable gastroenteritis, improving. 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 Compensated. Holding furosemide due to GI symptoms and acute kidney injury. (4) Atrial fibrillation: Rate controlled on metoprolol and digoxin. Digoxin level 1.0. INR today = 2.6. (5) Chronic respiratory failure with hypoxia and hypercapnia: Continue supplemental O2. (6) Diabetes mellitus type 2, uncontrolled: DM type 2 on glimepiride at home. Random blood sugar at time of admission 283. Hgb A1c 8.8. Blood sugar this morning 312. Hold glimepiride. Pharmacy consulted for glycemic management. Lantus / NovoLog per protocol. (7) Do not resuscitate status: As noted. (8) DVT prophylaxis: On warfarin for AF. Ambulate. (9) Discharge planning issues: Anticipated discharge to home. Internal Medicine follow-up with Dr. Gutierrez. Admission and Anticipated Discharge Date Admission Date: June 14, 2019 Subjective Recheck for multiple problems. Patient seen in their room around 1720. Admitted yesterday with nausea, vomiting, anorexia, generalized weakness. Feels somewhat better today. GI symptoms improved; no further N/V. No diarrhea. Blood glucose > 300 this morning Review of Systems: Constitutional- no fever. Cardiac- no chest pain. Pulmonary- no cough or SOB. GI- as noted above. - no urinary symptoms. Otherwise, as noted above. Physical Exam Constitutional: no acute distress Eyes: + anicteric sclerae Respiratory: no respiratory distress Auscultation: lungs clear to auscultation bilaterally Cardiovascular: Rate/Rhythm: + irregularly irregular Vessels: no JVD Extremities: + edema (trace pretibial); no calf tenderness Gastrointestinal (Abdomen): normal bowel sounds, soft, nontender, no hepatosplenomegaly Musculoskeletal: Extremities: no cyanosis Skin: no rashes, warm and dry Psychiatric: Orientation: alert and oriented x 3 Results & Data ([facility]) Vital Signs (Past 12 Hours) Vital Signs Temp Pulse Resp BP BP Pulse Ox 06/14/19 20:18 71 137/79 06/14/19 15:11 36.5 C 67 20 154/81 H 95 Laboratory Results 06/14/19 01:59 06/14/19 01:57
--- NOTE | 2019-06-14 22:47 | Electrocardiogram Report ---
Test Reason : Blood Pressure : / mmHG Vent. Rate : 068 BPM Atrial Rate : 187 BPM P-R Int : 000 ms QRS Dur : 168 ms QT Int : 422 ms P-R-T Axes : 000 -24 -51 degrees QTc Int : 448 ms Atrial fibrillation with occasional ventricular-paced complexes Right bundle branch block T wave abnormality, consider lateral ischemia Abnormal ECG When compared with ECG of 08-JAN-2018 06:43, Ventricular pacing is now present Vent. rate has decreased BY 71 BPM Confirmed by Brijesh Frank ([id number]) on 06/14/2019 10:47:53 PM Referred By: REFERRED SELF Confirmed By:Brijesh Frank
[2019-06-15] MEDS: INSULIN ASPART 100 UNITS/ML 3 ML PEN SC SCH ×4 (00:13→12:15)
[2019-06-15 05:45] LABS: Hematocrit (blood only) 35.1 % (37-47); Hemoglobin 11.1 g/dL (12.0-16.0); Mean Corpuscular Hemoglobin 29.5 pg (25-34); Mean Corpuscular Hgb Conc 31.6 g/dL (32-36); Mean Corpuscular Volume 93.4 fL (80-100); Mean Platelet Volume 10.3 fL (7.4-10.4); Platelet Count 248 K/uL (130-400); RDW Coefficient of Variation 14.1 % (11.5-14.5); RDW Standard Deviation 47.8 fL (36.4-46.3); Red Blood Count 3.76 M/uL (4.2-5.4); White Blood Count 7.05 K/uL (4.8-10.8)
[2019-06-15 06:03] LABS: INR 2.7 (0.9-1.1); Prothrombin Time 25.6 Seconds (9.0-12.0)
[2019-06-15 06:12] LABS: BUN Creatinine Ratio 22.1 (10-20); Calcium 8.4 mg/dl (8.5-10.1); Creatinine Clr Calc Pharmacy 49.3 ml/min; Est GFR (Non-African American) 55.3; Potassium 4.3 mmol/L (3.5-5.1)
[2019-06-15] MEDS: METOPROLOL TARTRATE 100 MG TAB PO SCH (09:06)
[2019-06-15] MEDS: DIGOXIN 0.125 MG TAB PO SCH (09:06)
[2019-06-15] MEDS: ATORVASTATIN 40 MG TAB PO SCH (09:06)
[2019-06-15] MEDS: INSULIN GLARGINE SOLOSTAR 100 UNITS/ML 3 ML PEN SC SCH (09:06)
[2019-06-15] MEDS: DOCUSATE SODIUM/SENNA 50/8.6MG TAB PO SCH (09:06)
[2019-06-15] MEDS: CHOLECALCIFEROL 1,000 UNITS 25 MCG TAB PO SCH (09:06)
--- NOTE | 2019-06-15 13:36 | Hospitalist Progress Note ---
Date of Service June 15, 2019 Assessment & Plan (1) MARKUS (acute kidney injury): Baseline serum creatinine 0.9. Creatinine at time of admission 1.26. Probable acute kidney injury secondary to N&V. Received IV fludis. Creatinine today = 0.93. Follow. (2) Fever: Low grade fever associated with malaise, nausea. No leukocytosis. LFT's normal. Lipase slightly elevated. 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 No infiltrates on CXR. No acute findings on CT of abd/pelvis. UA did not appear to be infected. Probable viral syndrome, improving. Re-evaluate as necessary for persistent fever or new symptoms. 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 Compensated. Held furosemide due to GI symptoms and acute kidney injury. Discharge on usual regimen. (4) Atrial fibrillation: Rate controlled on metoprolol and digoxin. Digoxin level 1.0. INR today = 2.7. (5) Chronic respiratory failure with hypoxia and hypercapnia: Continue supplemental O2. (6) Diabetes mellitus type 2, uncontrolled: DM type 2 on glimepiride at home. Random blood sugar at time of admission 283. Hgb A1c 8.8. Blood sugar as high as 312. Held glimepiride. Pharmacy consulted for glycemic management. Receiving Lantus / NovoLog per protocol. FBS 132 today. Discharge on usual regimen with outpt f/u. (7) Do not resuscitate status: As noted. (8) DVT prophylaxis: On warfarin for AF. Ambulate. (9) Discharge planning issues: Anticipated discharge to home. Internal Medicine follow-up with Dr. Gutierrez. Admission and Anticipated Discharge Date Admission Date: June 14, 2019 Subjective Recheck for multiple problems. Patient seen in their room. Family visiting. Feels well. Anxious to go home. Malaise resolved. No further nausea. Respiratory status at baseline. Review of Systems: Constitutional- no fever. Cardiac- no chest pain. Pulmonary- no cough or SOB. GI- as noted above. - no urinary symptoms. Otherwise, as noted above. Physical Exam Constitutional: no acute distress Eyes: + anicteric sclerae Respiratory: no respiratory distress Auscultation: lungs clear to auscultation bilaterally Cardiovascular: Rate/Rhythm: + irregularly irregular Vessels: no JVD Extremities: + edema (trace pretibial); no calf tenderness Gastrointestinal (Abdomen): normal bowel sounds, soft, nontender, no hepatosplenomegaly Musculoskeletal: Extremities: no cyanosis Skin: no rashes, warm and dry Psychiatric: Orientation: alert and oriented x 3 Results & Data ([facility]) Vital Signs (Past 12 Hours) Vital Signs Temp Pulse Pulse Resp BP Pulse Ox 06/15/19 09:06 84 06/15/19 07:27 37.8 C H 84 16 163/78 H 96 Laboratory Results 06/15/19 05:26 06/15/19 05:26
--- NOTE | 2019-06-16 05:09 | Discharge Summary ---
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 She was found to have MARKUS and Dehydration on her labs. No signs of infection. Flu was negative, but she looks like she has the flu. Principal Diagnosis acute kidney injury probable viral illness Discharge Data Allergies Allergy/AdvReac Type Severity Reaction Status Date / Time dicyclomine Allergy Intermediate HIVES Verified 06/13/19 16:47 Sulfa (Sulfonamide Allergy Intermediate Vomiting Verified 06/13/19 16:47 Antibiotics) tramadol Allergy Intermediate GI SYMPTOMS Verified 06/13/19 16:47 lisinopril AdvReac Severe RENAL Verified 06/13/19 16:47 COMPLICATIONS PER [facility]. lorazepam AdvReac Intermediate Drowsy Verified 06/13/19 16:47 oxycodone AdvReac Intermediate STATES Verified 06/13/19 16:47 INCREASED SEDATION WITH SEVERE N/V=OXYCODONE phentermine AdvReac Mild NERVOUSNESS Verified 06/13/19 16:47 & CONSTIPATION Consultations 06/13/19 18:04 ED Decision to Admit Stat Ordered Studies 06/13/19 16:55 CT abd pelvis wo con Stat Hospital Course (1) MARKUS (acute kidney injury): Baseline serum creatinine 0.9. Creatinine at time of admission 1.26. Probable acute kidney injury secondary to N&V. Received IV fludis. Creatinine day of discharge 0.93. Follow. (2) Fever: Low grade fever associated with malaise, nausea. No leukocytosis. LFT's normal. Lipase slightly elevated. 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 No infiltrates on CXR. No acute findings on CT of abd/pelvis. UA did not appear to be infected. Probable viral syndrome, improving. Re-evaluate as necessary for persistent fever or new symptoms. 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 Compensated. Held furosemide due to GI symptoms and acute kidney injury. Discharge on usual regimen. (4) Atrial fibrillation: Rate controlled on metoprolol and digoxin. Digoxin level 1.0. INR day of discharge 2.7. (5) Chronic respiratory failure with hypoxia and hypercapnia: Continue supplemental O2. (6) Diabetes mellitus type 2, uncontrolled: DM type 2 on glimepiride at home. Random blood sugar at time of admission 283. Hgb A1c 8.8. Blood sugar as high as 312. Held glimepiride. Pharmacy consulted for glycemic management. Receiving Lantus / NovoLog per protocol. FBS 132 day of discharge. Discharge on usual regimen with outpt f/u. (7) Do not resuscitate status: As noted. (8) DVT prophylaxis: On warfarin for AF. Ambulate. (9) Discharge planning issues: Discharge to home. Internal Medicine follow-up with Dr. Gutierrez. Total Time Total Time Spent Total Time Spent (In Minutes): 40 Discharge Plan Discharge Items Patient Disposition: Home - Home Health Services Reason For Visit: weakness, nausea Discharge Diagnosis: dehydration probable viral infection Condition on Discharge: Good Activity: Resume your previous activity Non-emergency contact: Primary Care Provider and Hospitalist Call non-emergency contact if: you have any medication questions, your symptoms worsen and your temperature is above 101 Follow-up/Referrals: Gely Gutierrez DO [Primary Care Provider] - 06/18/19 12:45 pm (Please call [phone] or [phone] if you need to reschedule this appointment. Appointment is with Dr. Nayak (Dr. Gutierrez is on Medical Leave)) Diet: Carb Consistent or DM2 and Heart Healthy Addtl Attending Provider Instructions: MEDICATION CHANGES: None. SUMMARY OF TEST RESULTS: Blood tests showed that you were dehydrated. Chest x-ray did not show any sign of pneumonia. Flu test was negative. Urine did not show any infection. OTHER INSTRUCTIONS: Continue oxygen as before. Seek medical attention if you have: * temperature above 101 * chest pain or trouble breathing * abdominal pain, nausea, vomiting * diarrhea, dark stools or bloody stools * any unanswered questions or concerns Call [phone] if symptoms are severe. Please take good care of yourself. Call if you have any questions or problems. You can reach a [facility] hospitalist on duty at [facility] 24 hours a day by calling [phone]. My cell # is [phone]. Pending Studies at Discharge: No Stand-Alone Forms: My [facility], Smoking Cessation Medications and DC Order Prescriptions: Continued atorvastatin 40 mg Tablet 40 mg PO DAILY RF: 0 sennosides-docusate sodium [Senna-S] 8.6-50 mg Tablet 2 tab PO DAILY RF: 0 cholecalciferol (vitamin D3) 2,000 unit Capsule 2,000 unit PO DAILY RF: 0 metformin 500 mg Tablet 500 mg PO BIDM RF: 0 metoprolol tartrate 100 mg Tablet See Rx Instructions .ROUTE .COMPLEX RF: 0 warfarin 2.5 mg Tablet See Rx Instructions .ROUTE .COMPLEX RF: 0 spironolactone 25 mg Tablet 25 mg PO 3XWK RF: 0 glimepiride 2 mg Tablet 2 mg PO QDB RF: 0 furosemide [Lasix] 80 mg Tablet See Rx Instructions .ROUTE .COMPLEX RF: 0 digoxin 125 mcg (0.125 mg) Tablet 125 mcg PO DAILY RF: 0 Discharge Orders: Discharge Order (Routine); Ordered 06/15/19 Ordered By: Kendrick Zacarias Admission Data Admit Date/Time: 06/14/19 10:38 Attending Provider: Kendrick Zacarias Admit Provider: Ashok Andrews Primary Care Provider: Gely Gutierrez Other Providers: Ashok Andrews ; [facility] Other Interventions: Discharge Summary Assessment (RN) Last Done: 06/15/19 14:20 DC Date/Time DO NOT enter until pt leaves facility: 06/15/19 15:14
== END 2019-06-15 15:14 | disposition home health service (06) | DRG 683 ==
LOC: ED 15:53 → 4W 15:53 → SUATTDRO 18:19 → 4W 18:45

== ENCOUNTER 2019-07-20 21:33 | Inpatient (IN) ==
[2019-07-20] MEDS ORDERED: ONDANSETRON INJ 2 MG/ML 2 ML VIAL IV STA ×2 (21:44→23:28)
[2019-07-20 22:10] LABS: Basophils # (auto) 0.01 K/uL (0-0.2); Basophils % (auto) 0.1 %; Eosinophils # (auto) 0.11 K/uL (0-0.5); Eosinophils % (auto) 1.4 %; Hematocrit (blood only) 41.4 % (37-47); Hemoglobin 13.3 g/dL (12.0-16.0); Immature Granulocytes # (auto) 0.03 K/uL (0.00-0.02); Immature Granulocytes % (auto) 0.4 %; Lymphocytes # (auto) 1.81 K/uL (1.2-3.4); Lymphocytes % (auto) 23.6 %; Mean Corpuscular Hgb Conc 32.1 g/dL (32-36); Mean Corpuscular Volume 93.5 fL (80-100); Mean Platelet Volume 10.8 fL (7.4-10.4); Monocytes # (auto) 0.45 K/uL (0.11-0.59); Monocytes % (auto) 5.9 %; Neutrophils # (auto) 5.25 K/uL (1.4-6.5); Neutrophils % (auto) 68.6 %; Platelet Count 220 K/uL (130-400); RDW Coefficient of Variation 14.1 % (11.5-14.5); RDW Standard Deviation 48.2 fL (36.4-46.3); Red Blood Count 4.43 M/uL (4.2-5.4); White Blood Count 7.66 K/uL (4.8-10.8)
[2019-07-20 22:22] LABS: iSTAT Creatinine 1.3 mg/dl (0.6-1.3); iSTAT Hemoglobin 13.9 g/dl (12.0-16.0); iSTAT Ionized Calcium 1.1 mmol/l (1.12-1.32); iSTAT Potassium 3.9 mmol/L (3.3-5.0)
[2019-07-20 22:27] LABS: Alanine Aminotransferase 27 U/L (12-78); Albumin Level 3.8 gm/dl (3.4-5.0); Aspartate Aminotransferase 41 U/L (15-37); BUN Creatinine Ratio 25.7 (10-20); Blood Urea Nitrogen 35 mg/dl (7-18); Calcium 9.4 mg/dl (8.5-10.1); Carbon Dioxide 29 mmol/L (21-32); Chloride 100 mmol/L (98-107); Creatinine Clr Calc Pharmacy 34.6 ml/min; Est GFR (African American) 41.2; Est GFR (Non-African American) 35.5; Glucose 191 mg/dl (70-99); Lipase 656 U/L (73-393); Potassium 3.9 mmol/L (3.5-5.1); Sodium 135 mmol/L (136-145)
[2019-07-20] MEDS ORDERED: IOVERSOL 100ml IV PRN (22:29)
[2019-07-20 22:32] LABS: Albumin Globulin Ratio 0.8 (0.9-2); Alkaline Phosphatase 78 U/L (45-117); Bilirubin,Total 0.5 mg/dl (0.2-1); Globulin 4.5 gm/dl (2.5-4.0); Total Protein 8.3 gm/dl (6.4-8.2); Troponin I < 0.015 ng/ml (0-0.045)
--- NOTE | 2019-07-20 22:47 | CT Scan Report ---
ABDOMEN AND PELVIS CT WITH IV CONTRAST CT DOSE: 1323.88 mGy.cm HISTORY: Acute upper abdominal pain with nausea upper ab pain, nausea TECHNIQUE: Multiaxial CT images of the abdomen and pelvis were performed following the IV administrat ion of 88 cc of Optiray 320, A dose lowering technique was utilized adhering to the principles of AL BRENDAN. COMPARISON STUDY: CT abdomen pelvis 06/13/2019 FINDINGS: 7 mm nodular opacity of the basal right lower lobe, image 7 series 3 appears new from prior and august e secondary to atelectasis. 6 mm subpleural nodular focus of the basal left lower lobe on image 3 ser ies 3 is unchanged. Mild intralobular septal thickening of the lung bases with linear bibasilar densi ties suggestive of atelectasis/scarring. No pneumatosis or pneumoperitoneum. The imaged inferior card iac chambers are enlarged. Partially imaged pacer lead. Spleen and adrenal glands are unremarkable. Mild gallbladder distention without cholelithiasis or mukesh iary ductal dilation. Moderate pancreatic atrophy. There are a few cystic foci of the pancreatic tail measuring up to 10 mm which are nonspecific, possibly field service representative of sidebranch IPMN's. No pancre atic ductal dilation. Unremarkable appearance of the liver. No acute abnormality of the kidneys enhan ce symmetrically. lobulations are present bilaterally. No obstructive uropathy. Ureters and uri nary bladder are unremarkable. Hysterectomy with pelvic floor relaxation. No adnexal mass lesions. Mo derate calcified plaque of the abdominal aorta and branch vessels. No aneurysm. Retroaortic left katiana l vein. Unremarkable IVC. No adenopathy. No bowel obstruction or bowel wall thickening. Extensive colonic diverticulosis without acute diverti culitis. No ascites or mesenteric stranding. Study is limited secondary to patient body habitus with portions of the left lateral abdomen excluded from the [id number]. Mild fecal retention. Terminal ileum is unremarkable. The appendix is not visualized, reportedly surgically absent. There are a few stool-filled loops of small bowel within the pelvis suggestive of decreased transit. Soft tissues are unremarkable. Degenerative changes of the spine, pelvis and hips. Demineralized appearance of the miguelito ailyn. Mild lumbar levoscoliosis. IMPRESSION: 1. No acute intra-abdominal or intrapelvic abnormality. 2. Extensive colonic diverticulosis without acute diverticulitis. 3. Mild fecal retention. 4. Prior appendectomy and hysterectomy. 5. Additional findings as above. ACT 112: Negative or not required by law. The above report was generated using voice recognition software. It may contain grammatical, syntax o r spelling errors. Electronically signed by: Adebayo Bonds M.D. 07/20/2019 10:46 PM
--- NOTE | 2019-07-20 23:10 | Emergency Department Note ---
Impression & Plan Abdominal pain, Nausea, Elevated lipase Allergies Allergies Allergy/AdvReac Type Severity Reaction Status Date / Time dicyclomine Allergy Intermediate HIVES Verified 06/13/19 16:47 Sulfa (Sulfonamide Allergy Intermediate Vomiting Verified 06/13/19 16:47 Antibiotics) tramadol Allergy Intermediate GI SYMPTOMS Verified 06/13/19 16:47 lisinopril AdvReac Severe RENAL Verified 06/13/19 16:47 COMPLICATIONS PER [facility]. lorazepam AdvReac Intermediate Drowsy Verified 06/13/19 16:47 oxycodone AdvReac Intermediate STATES Verified 06/13/19 16:47 INCREASED SEDATION WITH SEVERE N/V=OXYCODONE phentermine AdvReac Mild NERVOUSNESS Verified 06/13/19 16:47 & CONSTIPATION Home Meds Home Medications Medication Instructions Recorded Confirmed atorvastatin 40 mg PO DAILY 01/07/18 07/20/19 cholecalciferol (vitamin D3) 2,000 unit PO DAILY 01/07/18 07/20/19 sennosides-docusate sodium 2 tab PO DAILY 01/07/18 07/20/19 [Senna-S] digoxin 125 mcg PO DAILY 06/13/19 07/20/19 furosemide [Lasix] See Rx Instructions .ROUTE .COMPLEX 06/13/19 07/20/19 glimepiride 2 mg PO QDB 06/13/19 07/20/19 metformin 500 mg PO BIDM 06/13/19 07/20/19 metoprolol tartrate See Rx Instructions .ROUTE .COMPLEX 06/13/19 07/20/19 spironolactone 12.5 mg PO 3XWK 06/13/19 07/20/19 warfarin See Rx Instructions .ROUTE .COMPLEX 06/13/19 07/20/19 ED Provider Note NAME: ALISHA WAKEFIELD AGE: 89 SEX: F : 1930 ARRIVES VIA: Ambulance INFORMANT: [Patient][, ] ED PROVIDER(S): [Edwin Muhammad MD] Chief Complaint: Abdominal pain, nausea HPI: Patient does present via EMS due to concern for nausea and epigastric pain. Patient states her symptoms began around 4 PM. The patient states symptoms been constant. She did try taking Tums without relief. Nothing is made her symptoms much better. Patient denies eating or drinking issues but has had nausea with increased belching. Patient has not had any urinary symptoms. The patient has had a recent bowel movement. Patient denies any blood in the urine or stool. Patient denies any chest pains or shortness of breath. The patient is on 2 L of oxygen at all times. ROS: See HPI for pertinent positives and negatives. A total of 10 systems were reviewed and otherwise negative. Past medical history: See below Surgical history: See below Social history: See below Physical Exam: GENERAL: Ill-appearing, diaphoretic, well nourished. EYE EXAM: Normal conjunctiva. PERRL, no anisocoria and EOM's grossly intact w/o pain. OROPHARYNX: Moist mucus membranes. Grossly normal dentition. NECK: Supple, no nuchal rigidity, no adenopathy, non-tender. No signs of mening ismus. LUNGS: Clear to auscultation. Normal chest wall mechanics. HEART: NSR, no MRG. ABDOMEN: Abdomen soft, epigastric pain without peritonitis, normo-active bowel sounds, no masses, no rebound or guarding. BACK: No CVA TTP. SKIN: No rashes and no bruising. UPPER EXTREMITIES: Upper extremities are grossly normal. LOWER EXTREMITIES: Grossly normal, +1 bilateral lower extremity edema, symmetric. NEURO EXAM: A&O x3, cranial nerves II-XII grossly intact, normal speech, moves all 4 extremities on command w/o issue. Differential diagnoses: Appendicitis, ovarian cyst, ovarian torsion, ectopic pre gnancy, TOA, PID, infections, diverticulitis, UTI, obstruction, mesenteric ischemia, aortic pathology, inflammatory bowel disease, renal colic, PUD, pancreatitis, biliary pathology, hernia, volvulus, constipation, as well as other pathologies. Course: Patient was seen and evaluated the bedside. A full history and physical exam was performed. Patient was reassessed was feeling somewhat improved. Patient did not do well with an ambulatory trial. Medicine was paged. I did speak with the on-call hospitalist Dr. Lemon who agreed to further evaluate treat the patient. EKG: Indication: Nausea A. fib with the occasional ventricularly paced complexes, right bundle branch block, rate of 77, wide QRS, T WI inferiorly and laterally. These appear unchanged compared to prior EKG on June 13, 2019. Imaging Studies: Radiology results as stated below per my review in the radiologist's in terpretation: ABDOMEN AND PELVIS CT WITH IV CONTRAST CT DOSE: 1323.88 mGy.cm HISTORY: Acute upper abdominal pain with nausea upper ab pain, nausea TECHNIQUE: Multiaxial CT images of the abdomen and pelvis were performed following the IV administration of 88 cc of Optiray 320, A dose lowering t echnique was utilized adhering to the principles of ALARA. COMPARISON STUDY: CT abdomen pelvis 06/13/2019 FINDINGS: 7 mm nodular opacity of the basal right lower lobe, image 7 series 3 appears new from prior and may be secondary to atelectasis. 6 mm subpleural nodular focus of the basal left lower lobe on image 3 series 3 is unchanged. Mild intralobular septal thickening of the lung bases with linear bibasilar densities suggestive of atelectasis/scarring. No pneumatosis or pneumoperitoneum. The imaged inferior cardiac chambers are enlarged. Partially imaged pacer lead. Spleen and adrenal glands are unremarkable. Mild gallbladder distention without cholelithiasis or biliary ductal dilation. Moderate pancreatic atrophy. There are a few cystic foci of the pancreatic tail measuring up to 10 mm which are nonspecific, possibly public service representative of sidebranch IPMN's. No pancreatic ductal dilation. Unremarkable appearance of the liver. No acute abnormality of the kidneys enhance symmetrically. lobulations are present bilaterally. No obstructive uropathy. Ureters and urinary bladder are unremarkable. Hysterectomy with pelvic floor relaxation. No adnexal mass lesions. Moderate calcified plaque of the abdominal aorta and branch vessels. No aneurysm. Retroaortic left renal vein. Unremarkable IVC. No adenopathy. No bowel obstruction or bowel wall thickening. Extensive colonic diverticulosis without acute diverticulitis. No ascites or mesenteric stranding. Study is limited secondary to patient body habitus with portions of the left lateral abdomen excluded from the [id number]. Mild fecal retention. Terminal ileum is unremarkable. The appendix is not visualized, reportedly surgically absent. There are a few stool-filled loops of small bowel within the pelvis suggestive of decreased transit. Soft tissues are unremarkable. Degenerative changes of the spine, pelvis and hips. Demineralized appearance of the bones. Mild lumbar levoscoliosis. IMPRESSION: 1. No acute intra-abdominal or intrapelvic abnormality. 2. Extensive colonic diverticulosis without acute diverticulitis. 3. Mild fecal retention. 4. Prior appendectomy and hysterectomy. 5. Additional findings as above. ACT 112: Negative or not required by law. The above report was generated using voice recognition software. It may contain grammatical, syntax or spelling errors. Electronically signed by: Adebayo Bonds M.D. 07/20/2019 10:46 PM Dictated: 07/20/192237 Transcribed: 07/20/192237 Cardiac monitoring: An order was placed for continuous cardiac monitoring. The monitor shows a rate of 79 with atrial fibrillation occasionally paced rhythm. MDM: Patient was seen and evaluated the bedside. The patient did present with epigastric pain nausea mildly ill in appearance with associated diaphoresis. The patient denies any chest pains or shortness of breath but increased belching and epigastric pain. Patient denies any recent trauma. Recent bowel movement no urinary symptoms and no lower abdominal pain. The patient did have blood work completed along with a CT of the abdomen pelvis EKG and troponin. EKG does show T wave inversions throughout but these appear chronic and old compared to previous EKG. The patient's blood work shows a normal white count H&H and platelet count. The patient's kidney function is unremarkable. Anion gap and bicarb are normal. Patient does have slightly elevated blood glucose but not in DKA. Patient does have some very mild MARKUS baseline creatinine of 0.8 today is 1.3. Patient's AST is slightly elevated but normal bilirubin and ALT. CT of the abdomen pelvis is unremarkable with no acute findings. Patient was reassessed and was feeling improved. The patient did tolerate by mouth. Patient did not do well with an ambulatory trial. The patient became very lightheaded dizzy and again diaphoretic. Given these concerns as well as the fact the patient does live by herself I believe she would benefit from inpatient observation and continued treatment and monitoring. I did speak with the on- call hospitalist Dr. thrasher who agreed to further evaluate treat the patient. Patient was admitted to the medicine service. Past Med/Surg History Medical History MARKUS (acute kidney injury) Atrial fibrillation Chronic kidney disease Chronic respiratory failure with hypoxia and hypercapnia Congestive heart failure Deep vein thrombosis Dehydration Depression Diabetes mellitus type 2 in obese Diabetes mellitus, type 2 Do not resuscitate status Hypertension On home oxygen therapy Pacemaker Rheumatoid arthritis Valvular heart disease Surgical History History of hysterectomy History of total knee replacement Social History Preferred Language: Tajik Communication Ability: Effective Visual Impairment: Limited Business Control Manager Required: No Beliefs That Will Affect Care: None Current Living Situation: Alone Other Information That Helps Us Care for You: No Feels Safe at Home: Yes Smoking Status: Never smoker Second Hand Exposure: Yes ; Hx Alcohol Use: Yes Alcohol type: wine Hx Substance Use: No Results & Data (ED) Vital Signs Vital Signs - 24 hr 07/20/19 21:43 07/20/19 23:25 07/20/19 23:31 Temperature 36.6 C Temperature Source Oral Pulse Rate 77 Pulse Rate [Right Finger] 75 Pulse Rate from SpO2 Sensor Pulse Rhythm Irregular Pulse Strength Normal Respiratory Rate 26 H 18 Respiratory Effort / Characteristics Non-Labored Spontaneous Non-Labored Spontaneous Respiratory Depth Normal Normal Respiratory Pattern Regular Regular Blood Pressure 166/82 H Blood Pressure [Right Arm] 167/105 H 172/69 H Blood Pressure Mean 110 Blood Pressure Mean [Right Arm] 125 103 Blood Pressure Position Sitting Blood Pressure Position [Right Arm] Lying Lying Pulse Oximetry 95 95 Oxygen Delivery Method Nasal Cannula Nasal Cannula Oxygen Flow Rate 2 2 Sepsis Recent Fever Within 48 Hours No Sepsis New/Unexplained Change in Mental Status No Sepsis Action Taken by Nursing No Action Required 07/21/19 00:01 Temperature Temperature Source Pulse Rate 75 Pulse Rate [Right Finger] Pulse Rate from SpO2 Sensor 82 Pulse Rhythm Pulse Strength Respiratory Rate 24 Respiratory Effort / Characteristics Respiratory Depth Respiratory Pattern Blood Pressure 166/85 H Blood Pressure [Right Arm] Blood Pressure Mean 108 Blood Pressure Mean [Right Arm] Blood Pressure Position Blood Pressure Position [Right Arm] Pulse Oximetry 97 Oxygen Delivery Method Nasal Cannula Oxygen Flow Rate 2 Sepsis Recent Fever Within 48 Hours Sepsis New/Unexplained Change in Mental Status Sepsis Action Taken by Detention Medications Current Medication List: was personally reviewed by me Laboratory Data Attestation: I reviewed the patient's lab results. Result diagrams: 07/21/19 06:40 07/21/19 06:40 Lab Results 07/20/19 07/20/19 07/20/19 Range/Units 22:02 22:02 22:09 WBC 7.66 (4.8-10.8) K/uL RBC 4.43 (4.2-5.4) M/uL Hgb 13.3 (12.0-16.0) g/dL POC Hgb 13.9 (12.0-16.0) g/dl Hct 41.4 (37-47) % POC Hct 41 (37-47) % MCV 93.5 (80-100) fL MCH 30.0 (25-34) pg MCHC 32.1 (32-36) g/dL RDW Std Deviation 48.2 H (36.4-46.3) fL RDW Coeff of Irena 14.1 (11.5-14.5) % Plt Count 220 (130-400) K/uL MPV 10.8 H (7.4-10.4) fL Immature Gran % (Auto) 0.4 % Neut % (Auto) 68.6 % Lymph % (Auto) 23.6 % [place] % (Auto) 5.9 % Eos % (Auto) 1.4 % Baso % (Auto) 0.1 % Immature Gran # (Auto) 0.03 H (0.00-0.02) K/uL Neut # (Auto) 5.25 (1.4-6.5) K/uL Lymph # (Auto) 1.81 (1.2-3.4) K/uL [place] # (Auto) 0.45 (0.11-0.59) K/uL Eos # (Auto) 0.11 (0-0.5) K/uL Baso # (Auto) 0.01 (0-0.2) K/uL POC Sodium 137 (135-144) mmol/L Sodium 135 L (136-145) mmol/L POC Potassium 3.9 (3.3-5.0) mmol/L Potassium 3.9 (3.5-5.1) mmol/L POC Chloride 98 L (101-112) mmol/L Chloride 100 (98-107) mmol/L Carbon Dioxide 29 (21-32) mmol/L POC Total CO2 28 (24-31) mEq/l Anion Gap 6.0 (3-11) POC Anion Gap 15.0 L (16-25) mmol/L POC BUN 33 H (7-18) mg/dl BUN 35 H (7-18) mg/dl Creatinine 1.34 H (0.6-1.2) mg/dl POC Creatinine 1.3 (0.6-1.3) mg/dl Est Cr Clr Drug Dosing 34.6 ml/min Est GFR ( Amer) 41.2 Est GFR (Non-Af Amer) 35.5 BUN/Creatinine Ratio 25.7 H (10-20) Glucose 191 H (70-99) mg/dl POC Glucose (other) 190 H (70-99) mg/dl Calcium 9.4 (8.5-10.1) mg/dl POC Ioniz Calcium Martin 1.10 L (1.12-1.32) mmol/l Total Bilirubin 0.5 (0.2-1) mg/dl AST 41 H (15-37) U/L ALT 27 (12-78) U/L Alkaline Phosphatase 78 (45-117) U/L Troponin I < 0.015 (0-0.045) ng/ml Total Protein 8.3 H (6.4-8.2) gm/dl Albumin 3.8 (3.4-5.0) gm/dl Globulin 4.5 H (2.5-4.0) gm/dl Albumin/Globulin Ratio 0.8 L (0.9-2) Lipase 656 H (73-393) U/L Urine Color Urine Appearance (Clear) Urine pH (4.5-7.5) Ur Specific [place] (1.000-1.030) Urine Protein (Negative) Urine Glucose (UA) (Negative) Urine Ketones (Negative) Urine Blood (Negative) Urine Nitrite (Negative) Urine Bilirubin (Negative) Urine Urobilinogen (Negative) Ur Leukocyte Esterase (Negative) Urine RBC (0-4) /hpf Urine WBC (0-5) /hpf Ur Epithelial Cells (0-5) /lpf Urine Bacteria (Negative) 07/20/19 Range/Units 23:33 WBC (4.8-10.8) K/uL RBC (4.2-5.4) M/uL Hgb (12.0-16.0) g/dL POC Hgb (12.0-16.0) g/dl Hct (37-47) % POC Hct (37-47) % MCV (80-100) fL MCH (25-34) pg MCHC (32-36) g/dL RDW Std Deviation (36.4-46.3) fL RDW Coeff of Irena (11.5-14.5) % Plt Count (130-400) K/uL MPV (7.4-10.4) fL Immature Gran % (Auto) % Neut % (Auto) % Lymph % (Auto) % [place] % (Auto) % Eos % (Auto) % Baso % (Auto) % Immature Gran # (Auto) (0.00-0.02) K/uL Neut # (Auto) (1.4-6.5) K/uL Lymph # (Auto) (1.2-3.4) K/uL [place] # (Auto) (0.11-0.59) K/uL Eos # (Auto) (0-0.5) K/uL Baso # (Auto) (0-0.2) K/uL POC Sodium (135-144) mmol/L Sodium (136-145) mmol/L POC Potassium (3.3-5.0) mmol/L Potassium (3.5-5.1) mmol/L POC Chloride (101-112) mmol/L Chloride (98-107) mmol/L Carbon Dioxide (21-32) mmol/L POC Total CO2 (24-31) mEq/l Anion Gap (3-11) POC Anion Gap (16-25) mmol/L POC BUN (7-18) mg/dl BUN (7-18) mg/dl Creatinine (0.6-1.2) mg/dl POC Creatinine (0.6-1.3) mg/dl Est Cr Clr Drug Dosing ml/min Est GFR ( Amer) Est GFR (Non-Af Amer) BUN/Creatinine Ratio (10-20) Glucose (70-99) mg/dl POC Glucose (other) (70-99) mg/dl Calcium (8.5-10.1) mg/dl POC Ioniz Calcium Martin (1.12-1.32) mmol/l Total Bilirubin (0.2-1) mg/dl AST (15-37) U/L ALT (12-78) U/L Alkaline Phosphatase (45-117) U/L Troponin I (0-0.045) ng/ml Total Protein (6.4-8.2) gm/dl Albumin (3.4-5.0) gm/dl Globulin (2.5-4.0) gm/dl Albumin/Globulin Ratio (0.9-2) Lipase (73-393) U/L Urine Color Yellow Urine Appearance Clear (Clear) Urine pH 6.5 (4.5-7.5) Ur Specific [place] 1.010 (1.000-1.030) Urine Protein Negative (Negative) Urine Glucose (UA) Negative (Negative) Urine Ketones Negative (Negative) Urine Blood 1+ H (Negative) Urine Nitrite Negative (Negative) Urine Bilirubin Negative (Negative) Urine Urobilinogen Negative (Negative) Ur Leukocyte Esterase Negative (Negative) Urine RBC 10-30 H (0-4) /hpf Urine WBC 0-5 (0-5) /hpf Ur Epithelial Cells 10-20 H (0-5) /lpf Urine Bacteria Negative (Negative) Administered Medications Atorvastatin Calcium (Lipitor) 40 mg PO DAILY [facility] Stop: 08/20/19 08:59 Last Admin: 07/21/19 07:55 Dose: 40 mg Documented by: [id number] Digoxin (Lanoxin) 0.125 mg PO DAILY@1600 [facility] Stop: 08/20/19 15:59 Last Admin: 07/21/19 15:36 Dose: 0.125 mg Documented by: [id number] Furosemide (Lasix) 80 mg PO [facility] Stop: 08/20/19 08:59 Last Admin: 07/21/19 07:55 Dose: 80 mg Documented by: [id number] Famotidine 20 mg/ Syringe 5 mls @ 2.5 mls/min IV BID [facility] Stop: 08/20/19 08:59 Last Admin: 07/21/19 07:55 Dose: 2.5 mls/min Documented by: [id number] Sodium Chloride (Nss 1000ml) 1,000 mls @ 100 mls/hr IV .Q10H [facility] Stop: 08/20/19 03:05 Last Admin: 07/21/19 12:25 Dose: 100 mls/hr Documented by: [id number] Infusion: 07/21/19 12:25 Dose: 100 mls/hr Documented by: [id number] Admin: 07/21/19 03:36 Dose: 100 mls/hr Documented by: [id number] [facility] [place]: 08/20/19 08:59 Last Admin: 07/21/19 07:55 Dose: 100 mg Documented by: [id number] Ondansetron HCl (Zofran) 4 mg IV Q6H PRN PRN Reason: Nausea Stop: 08/20/19 03:05 Last Admin: 07/21/19 12:25 Dose: 4 mg Documented by: [id number] Senna/Docusate Sodium (Senokot S) 2 tab PO DAILY [facility] Stop: 08/20/19 08:59 Last Admin: 07/21/19 07:56 Dose: 2 tab Documented by: [id number] Spironolactone (Aldactone) 12.5 mg PO MoWeFr@0900 [facility] Stop: 08/20/19 08:59 Last Admin: 07/21/19 07:54 Dose: 12.5 mg Documented by: [id number] Vitamin D (Vitamin D3) 2,000 units PO DAILY [facility] Stop: 08/20/19 08:59 Last Admin: 07/21/19 07:56 Dose: 2,000 units Documented by: [id number] Warfarin Sodium (Coumadin) 5 mg PO SuMoWeThSa@1600 [facility] Stop: 08/20/19 15:59 Last Admin: 07/21/19 15:35 Dose: 5 mg Documented by: [id number] Discontinued Medications Al Hydrox/Mg Hydrox/Simethicone (Maalox Max) 15 ml PO NOW STA Stop: 07/21/19 03:07 Last Admin: 07/21/19 03:37 Dose: Not Given Documented by: [id number] Bisacodyl (Dulcolax) 10 mg [place] ONE ONE Stop: 07/21/19 08:01 Last Admin: 07/21/19 12:14 Dose: 10 mg Documented by: [id number] Insulin Aspart (Novolog Flexpen) 0 units SC Q6 [facility] Stop: 08/20/19 05:59 Last Admin: 07/21/19 12:13 Dose: 2 units Documented by: [id number] Cosigned by: [id number] Admin: 07/21/19 06:12 Dose: 2 units Documented by: [id number] Cosigned by: [id number] Ioversol (Optiray 320 100ml) 88 ml IV ONCE PRN PRN Reason: Interaction Checking Stop: 07/24/19 22:28 Last Admin: 07/20/19 22:29 Dose: 88 ml Documented by: [id number] Morphine Sulfate (Morphine Sulfate) 2 mg IV NOW STA Stop: 07/20/19 23:29 Last Admin: 07/20/19 23:34 Dose: 2 mg Documented by: [id number] Ondansetron HCl (Zofran) 4 mg IV NOW STA Stop: 07/20/19 21:45 Last Admin: 07/20/19 21:58 Dose: 4 mg Documented by: [id number] Ondansetron HCl (Zofran) 4 mg IV NOW STA Stop: 07/20/19 23:29 Last Admin: 07/20/19 23:34 Dose: 4 mg Documented by: [id number] Perflutren Lipid Microsphere (Definity) 2 ml IV ONCE ONE Stop: 07/21/19 07:10 Last Admin: 07/21/19 07:09 Dose: 2 ml Documented by: [id number] Blood Pressure Blood Pressure Findings: Elevated blood pressure Blood Pressure Disposition: further management by hospitalist Discharge Plan Visit Data *Final* Discharge Date/Time: 07/21/19 01:14 Chief Complaint: Abdominal Pain Stated Complaint: UPPER GASTRIC PAIN, NAUSEA ED Provider: Edwin Muhammad Discharge Problem: Abdominal pain, Nausea, Elevated lipase Patient Disposition: Admitted As Inpatient Discharge Instructions Interventions: ED Discharge Assessment Last Done: 07/21/19 01:14 Discharge Problem: Abdominal pain Qualifiers: Abdominal location: epigastric Qualified Code(s): R10.13 - Epigastric pain
[2019-07-20] MEDS ORDERED: MoRPHine SULFATE 2 MG/ML CARP IV STA (23:28)
[2019-07-21 00:11] LABS: Appearance Urine Clear (Clear); Bilirubin Urine Negative (Negative); Blood Urine 1+ (Negative); Color Urine Yellow; Glucose Urine UA Negative (Negative); Ketones Urine Negative (Negative); Leukocyte Esterase Urine Negative (Negative); Nitrite Urine Negative (Negative); Protein Urine Negative (Negative); Urobilinogen Urine Negative (Negative); pH Urine 6.5 (4.5-7.5)
[2019-07-21 00:32] LABS: Bacteria Urine Negative (Negative); WBC Urine 0-5 /hpf (0-5)
--- NOTE | 2019-07-21 02:14 | History and Physical Report ---
DATE OF ADMISSION: 07/21/2019 CHIEF COMPLAINT: Abdominal pain. HISTORY OF PRESENT ILLNESS: This is an 89-year-old female with past medical history significant for type 2 diabetes, hyperlipidemia, chronic respiratory failure with hypoxia on home oxygen therapy, diastolic heart failure, severe pulmonary hypertension, chronic atrial fibrillation, chronic right-sided heart failure, Raynaud syndrome, severe tricuspid and severe pulmonary regurgitation, hypertension, obesity, venous stasis dermatitis, status post cardiac pacemaker, who presents with epigastric abdominal pain. The patient lives alone in an apartment. Son and granddaughter live close by. She says around 4:30, she had epigastric abdominal pain. Blood pressure was going up and she was diaphoretic. She is also having dry heaving. Says she has dry heaving for a long time, but whenever she gets it Tums helps her, but today Tums did not help her. As she was not getting better, she came to the ER. In the ER,lab work was unremarkable except lipase was elevated at 656. Troponin was negative. EKG shows some T-wave inversions in inferior and lateral leads which mostly seemed old.. Currently, her abdominal pain is resolved, but she is feeling fatigue and mild headache. Denies any shortness of breath. No cough, no fever, no chills, no runny nose, no sore throat, no earaches, no blurred visions. She takes stool softeners for constipation. She says she moved her bowels today and it was normal. No blood in the stools or black stools. Normal bladder movements. Appetite is good. Walks without any support. She has chronic lower extremity edema. She keeps her legs elevated when she is sleeping. She is on diuretics. Currently resting comfortably and hemodynamically stable. ALLERGIES: TO DICYCLOMINE, SULFA ANTIBIOTICS, TRAMADOL, LISINOPRIL, LORAZEPAM, OXYCODONE, PHENTERMINE. PAST MEDICAL HISTORY: As mentioned above. PAST SURGICAL HISTORY: Right total knee arthroscopy, left total knee arthroscopy, colonoscopy with hyperplastic polyp removal, EGDs with biopsies, fatty tumors removed from the arms and right leg, single chamber pacemaker insertion, bilateral cataracts, appendectomy, total abdominal hysterectomy with removal of tubes. MEDICATIONS: The patient is on atorvastatin 40 mg p.o. daily, Lasix 80 mg b.i.d. and alternate with 80 mg in the a.m. and 40 mg in p.m. the next day, Lanoxin 125 mcg daily, spironolactone 12.5 mg on Friday, Friday and Friday, Lopressor 100 mg daily in the morning and 150 mg in the evening, glimepiride 2 mg p.o. daily, metformin 500 mg p.o. b.i.d., Coumadin 7.5 mg on Tuesdays and Fridays and 5 mg all other days or as directed, vitamin D 2000 units p.o. daily, Senokot S 2 pills daily, oxygen 2 liters as directed. FAMILY HISTORY: Significant for mother had liver cancer. SOCIAL HISTORY: , lives alone. No smoking, no alcohol, no drug use. REVIEW OF SYSTEMS: As per HPI. Rest of review of systems negative. PHYSICAL EXAMINATION: GENERAL: The patient is obese, not in acute distress. VITAL SIGNS: Temperature 36.6, pulse 75, respiratory rate 18, blood pressure 172/69, oxygen 95% on 2 liters. HEENT: No pallor, no icterus. Pupils equal, round, and reactive to light. NECK: No JVD, no neck mass, no carotid bruits. CARDIOVASCULAR: S1, S2 heard, regular rate and rhythm, no murmur, no gallop. RESPIRATORY SYSTEM: Normal AP diameter. No accessory muscle use. No wheezing, no crackles. ABDOMEN: Soft, bowel sounds present. Epigastric tenderness present. No guarding, no rigidity, no distention. CENTRAL NERVOUS SYSTEM: Cranial nerves II-XII grossly intact, nonfocal. EXTREMITIES: Lower extremity edema present, no erythema seen. LABORATORY DATA: WBC 7.6, hemoglobin 13.3, hematocrit 41.4, platelets 220. Sodium 135, potassium 3.9, chloride 110, bicarbonate 29, BUN 35, creatinine 1.34, serum glucose 191, calcium 9.4, total bilirubin 0.5, AST 41, ALT 27, alkaline phosphatase 78, troponin I less than 0.015. Lipase 656. Urinalysis negative. IMAGING DATA: CT of abdomen and pelvis is showing extensive colonic diverticulosis without acute diverticulitis, mild fecal retention. Prior appendectomy and hysterectomy. Mild gallbladder distention. 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 No pancreatic ductal dilatation. EKG: Shows atrial fibrillation with occasional ventricular paced complexes with PVCs, right bundle branch block, left anterior fascicular block, T-wave inversions in the inferolateral leads. ASSESSMENT AND PLAN: This is an 89-year-old female who presents with abdominal pain, fatigue, diaphoresis. 1. Epigastric abdominal pain and mild elevation of lipase. CT scan shows diverticulosis, mild gallbladder distention. Also cystic foci in the tail of the pancreas. We will keep her n.p.o. Repeat lipase in the a.m. IV fluids, normal saline at 100 mL per hour. IV Pepcid b.i.d. and IV Zofran p.r.n. Will consult GI in am for further recommendations. 2. Fatigue and sweating and epigastric abdominal pain. EKG shows some T-wave inversions in inferior lateral leads, seems to be old. Initial troponin is negative. Son wanted to notify cardiology. We will follow the serial cardiac enzymes, echo, and cardiac consult in a.m. 3. History of diabetes. Hold her home p.o. medications. We will place her on insulin sliding scale. Follow the HbA1c level, follow the blood sugars. 4. Chronic diastolic congestive heart failure and chronic right-sided heart failure with severe tricuspid regurgitation and severe pulmonary regurgitation. History of pulmonary arterial hypertension. chronic respiratory failure with hypoxia with 2 liters oxygen. Will continue her home diuretics . Currently getting fluids and monitor for any volume overload. 5. History of hypertension, continue diuretics and Lopressor. Will monitor the blood pressure. 6. Hyperlipidemia. Continue statin. 7. Chronic atrial fibrillation status post pacemaker. On digoxin, Lopressor and Coumadin. We will follow the PT/INR. 8. Acute kidney injury with creatinine 0.9, presently creatinine of 1.3. Getting fluids. We will follow the labs in a.m. 9. Deep venous thrombosis prophylaxis, Coumadin. Will follow the INR. 10. Disposition: Observe in med/surg tele. Level 1 full code. PT and OT prior to discharge. Social service to help with discharge planning. MTDD
[2019-07-21] MEDS ORDERED: NITROGLYCERIN SL 0.4 MG/TAB TAB SL PRN (03:06)
[2019-07-21] MEDS ORDERED: POLYETHYLENE (MIRALAX) 17 GM PACK PO PRN (03:06)
[2019-07-21] MEDS ORDERED: ONDANSETRON INJ 2 MG/ML 2 ML VIAL IV PRN (03:06)
[2019-07-21] MEDS ORDERED: ALUMINUM/MAGNESIUM/SIMETH (MAALOX MAX) 30 ML UDC PO STA (03:06)
[2019-07-21] MEDS ORDERED: ACETAMINOPHEN 325 MG TAB PO PRN (03:06)
[2019-07-21] MEDS ORDERED: MoRPHine SULFATE 2 MG/ML CARP IV PRN (03:06)
[2019-07-21] MEDS ORDERED: CARBOHYDRATES FOR HYPOGLYCEMIA PO PRN (03:30)
[2019-07-21] MEDS ORDERED: GLUCOSE 10 TABS/TUBE PO PRN (03:30)
[2019-07-21] MEDS ORDERED: DEXTROSE 50% 50 ML SYRINGE IV PRN (03:30)
[2019-07-21] MEDS ORDERED: GLUCAGON FOR INJ 1 MG VIAL IM PRN (03:30)
[2019-07-21] MEDS ORDERED: GLUCOSE 40% GEL 15 GM TUBE PO PRN (03:30)
[2019-07-21] MEDS: SODIUM CHLORIDE 0.9% 1000ML 1,000 ML IV SCH ×2 (03:36→12:25)
[2019-07-21] MEDS: INSULIN ASPART 100 UNITS/ML 3 ML PEN SC SCH ×4 (06:12→20:43)
[2019-07-21 06:59] LABS: Basophils # (auto) 0.01 K/uL (0-0.2); Basophils % (auto) 0.2 %; Eosinophils # (auto) 0.04 K/uL (0-0.5); Eosinophils % (auto) 0.6 %; Hematocrit (blood only) 38.9 % (37-47); Hemoglobin 12.4 g/dL (12.0-16.0); Immature Granulocytes # (auto) 0.02 K/uL (0.00-0.02); Immature Granulocytes % (auto) 0.3 %; Lymphocytes # (auto) 2.17 K/uL (1.2-3.4); Lymphocytes % (auto) 33.1 %; Mean Corpuscular Hemoglobin 29.5 pg (25-34); Mean Corpuscular Hgb Conc 31.9 g/dL (32-36); Mean Corpuscular Volume 92.4 fL (80-100); Monocytes # (auto) 0.29 K/uL (0.11-0.59); Monocytes % (auto) 4.4 %; Neutrophils # (auto) 4.02 K/uL (1.4-6.5); Neutrophils % (auto) 61.4 %; Platelet Count 203 K/uL (130-400); RDW Coefficient of Variation 14.2 % (11.5-14.5); RDW Standard Deviation 48.2 fL (36.4-46.3); Red Blood Count 4.21 M/uL (4.2-5.4); White Blood Count 6.55 K/uL (4.8-10.8)
[2019-07-21] MEDS ORDERED: PERFLUTREN LIPID MICROSPHERE (DEFINITY) IV ONE (07:09)
[2019-07-21 07:11] LABS: INR 2.3 (0.9-1.1); Prothrombin Time 23.5 Seconds (9.0-12.0)
[2019-07-21 07:18] LABS: BUN Creatinine Ratio 24.8 (10-20); Calcium 8.8 mg/dl (8.5-10.1); Creatinine Clr Calc Pharmacy 36.7 ml/min; Est GFR (African American) 44.8; Est GFR (Non-African American) 38.6; Magnesium 2.3 mg/dl (1.8-2.4)
[2019-07-21 07:23] LABS: Troponin I 0.016 ng/ml (0-0.045)
[2019-07-21 07:49] LABS: Estimated Average Glucose 177 mg/dl; Hemoglobin A1C 7.8 % (4.5-5.6)
[2019-07-21] MEDS: FUROSEMIDE 80 MG TAB PO SCH (07:55)
[2019-07-21] MEDS: METOPROLOL TARTRATE 100 MG TAB PO SCH (07:55)
[2019-07-21] MEDS: ATORVASTATIN 40 MG TAB PO SCH (07:55)
[2019-07-21] MEDS: CHOLECALCIFEROL 1,000 UNITS 25 MCG TAB PO SCH (07:56)
[2019-07-21] MEDS: DOCUSATE SODIUM/SENNA 50/8.6MG TAB PO SCH (07:56)
[2019-07-21] MEDS ORDERED: bisacodyL 10 MG SUPP PR ONE (08:00)
[2019-07-21] MEDS ORDERED: FAMOTIDINE 20 MG in SYRINGE 3 ML IV SCH (09:00)
[2019-07-21] MEDS ORDERED: SPIRONOLACTONE 25 MG TAB PO SCH (09:00)
--- NOTE | 2019-07-21 09:19 | Cardiology Consultation ---
Date of Consultation July 21, 2019 Assessment & Plan (1) Chronic right heart failure: (2) Chronic respiratory failure with hypoxia and hypercapnia: (3) Pickwickian syndrome: (4) Chronic atrial fibrillation: (5) Pacemaker: (6) Abdominal pain: (7) Nausea: 89-year-old female admitted with acute abdominal discomfort. Initial imaging unremarkable for acute intra-abdominal pathology. Complains of constipation x3 days. No chest discomfort, change in functional capacity, weight gain, worsening edema, or unusual shortness of breath Appears compensated from a heart failure perspective. Chronic atrial fibrillation is rate controlled and she is appropriately anticoagulated with Coumadin. Continue outpatient diuretic regimen with Lasix and Aldactone. Dose Coumadin with 7.5 mg on Tuesdays and Fridays, 5 mg all other day. Goal INR 2.0-3.0. Consider addition of Dulcolax suppository and/or enema if needed to treat constipation. No further cardiovascular testing or intervention at this time. History of Present Illness Reason for Consultation: abdominal pain Chronic right heart failure Requesting Physician: Dr. Jang Attending Physician: France Khanna, History of Present Illness 89-year-old female presents to the emergency department with abdominal pain. Describes epigastric pain beginning at approximately 4:30 PM. Elevated blood pressure and diaphoresis is noted. She became nauseated with dry heaving. Attempted to take Tums which did not improve symptoms. Presented to the ER for further evaluation. No chest discomfort or shortness of breath. Notes continued abdominal discomfort since admission. Reports a mild epigastric pain at this time. CT of the abdomen and pelvis unremarkable. Right upper quadrant ultrasound pending at this time. Reports constipation for the past 3 days. No fever, chills, or sick contacts. Weight per her home scale is stable. No recent changes to diuretic therapy. Denies orthopnea, PND, or change in chronic lower extremity edema. No palpitations, lightheadedness, dizziness, syncope, or near syncope. Complex cardiovascular history includes chronic atrial fibrillation, chronic anticoagulation with Coumadin, chronic right ventricular heart failure with severe pulmonary hypertension, preserved LV systolic function, nocturnal hypoxemia, diabetes type 2, hypertension, dyslipidemia, ray nods phenomenon, obesity, and esophagitis. Patient most recently evaluated in the cardiology clinic in February. Notes reveal compensated right-sided heart failure with a weight of 231 pounds. Weight unchanged upon presentation to the hospital current diuretic regiment includes Lasix 80 mg twice daily alternating with 80 mg in the a.m., 40 mg in the evenings. She also takes 12.5 mg of Aldactone on Friday, Friday, and Friday. Chronically anticoagulated with warfarin due to chronic atrial fibri llation. Dose of Coumadin is 7.5 mg on Tuesdays and Fridays, 5 mg all other days. INR therapeutic on admission. No signs/symptoms of GI/ blood loss. CT of the abdomen and pelvis performed on admission unremarkable. Bedside 2D transthoracic echocardiogram performed with findings of right ventricular heart failure and severe pulmonary hypertension. No significant change when compared to prior echocardiogram performed at [facility] 11/2017. Allergies Allergy/AdvReac Type Severity Reaction Status Date / Time dicyclomine Allergy Intermediate HIVES Verified 06/13/19 16:47 Sulfa (Sulfonamide Allergy Intermediate Vomiting Verified 06/13/19 16:47 Antibiotics) tramadol Allergy Intermediate GI SYMPTOMS Verified 06/13/19 16:47 lisinopril AdvReac Severe RENAL Verified 06/13/19 16:47 COMPLICATIONS PER [facility]. lorazepam AdvReac Intermediate Drowsy Verified 06/13/19 16:47 oxycodone AdvReac Intermediate STATES Verified 06/13/19 16:47 INCREASED SEDATION WITH SEVERE N/V=OXYCODONE phentermine AdvReac Mild NERVOUSNESS Verified 06/13/19 16:47 & CONSTIPATION Home Medications Home Medications Medication Instructions Recorded Confirmed Type atorvastatin 40 mg PO DAILY 01/07/18 07/20/19 History cholecalciferol (vitamin D3) 2,000 unit PO DAILY 01/07/18 07/20/19 History sennosides-docusate sodium 2 tab PO DAILY 01/07/18 07/20/19 History [Senna-S] digoxin 125 mcg PO DAILY 06/13/19 07/20/19 History furosemide [Lasix] See Rx Instructions .ROUTE .COMPLEX 06/13/19 07/20/19 History glimepiride 2 mg PO QDB 06/13/19 07/20/19 History metformin 500 mg PO BIDM 06/13/19 07/20/19 History metoprolol tartrate See Rx Instructions .ROUTE .COMPLEX 06/13/19 07/20/19 History spironolactone 12.5 mg PO 3XWK 06/13/19 07/20/19 History warfarin See Rx Instructions .ROUTE .COMPLEX 06/13/19 07/20/19 History Patient History Medical History MARKUS (acute kidney injury) Atrial fibrillation Chronic kidney disease Chronic respiratory failure with hypoxia and hypercapnia Congestive heart failure Deep vein thrombosis Dehydration Depression Diabetes mellitus type 2 in obese Diabetes mellitus, type 2 Do not resuscitate status Hypertension On home oxygen therapy Pacemaker Rheumatoid arthritis Valvular heart disease Surgical History History of hysterectomy History of total knee replacement Social History Preferred Language: Irish Communication Ability: Effective Visual Impairment: Limited Waste Salvager Required: No Beliefs That Will Affect Care: None marital status: / Current Living Situation: Alone Other Information That Helps Us Care for You: No Feels Safe at Home: Yes Smoking Status: Never smoker Second Hand Exposure: Yes ; Hx Alcohol Use: Yes Alcohol type: wine Hx Substance Use: No Review of Systems Review of Systems: All systems reviewed & are unremarkable except as noted in HPI & below Physical Exam Constitutional: well developed, well nourished and + obese Respiratory: normal respiratory effort; no respiratory distress and no labored breathing Auscultation: no crackles, no rales, no rhonchi and no wheezes Cardiovascular: Rate/Rhythm: + irregularly irregular Heart Sounds: normal S1 and normal S2; no murmur and no cardiac rub Vessels: + JVD; no carotid bruit Extremities: + edema (1+ bilateral pedal and ankle edema) Gastrointestinal (Abdomen): Inspection/Auscultation: abdomen normal to inspection and normal bowel sounds; abdomen not distended Percussion/Palpation: abdomen soft; abdomen nontender, no guarding and abdomen not rigid Musculoskeletal: no cyanosis or clubbing, extremities motor strength 5/5 Head/Neck/Chest: normocephalic and head atraumatic Skin: no rashes, warm and dry Neurologic: moves all extremities; no focal motor deficits Psychiatric: A+Ox3, euthymic affect Results & Data ([facility]) Vital Signs (Past 12 Hours) Vital Signs Temp Pulse Pulse Pulse Resp BP BP 03/25/20 07:47 36.3 C L 62 18 136/74 07/21/19 07:37 72 07/21/19 04:00 36.6 C 83 20 146/77 H 07/21/19 03:50 85 07/21/19 03:20 36.4 C L 68 18 07/21/19 01:01 61 19 144/80 H 07/21/19 00:31 72 20 156/65 H 07/21/19 00:01 75 24 166/85 H 07/20/19 23:31 07/20/19 23:25 75 18 07/20/19 21:43 36.6 C 77 26 H 166/82 H BP Pulse Ox 07/21/19 07:47 97 07/21/19 07:37 07/21/19 04:00 94 07/21/19 03:50 07/21/19 03:20 139/83 93 07/21/19 01:01 97 07/21/19 00:31 97 07/21/19 00:01 97 07/20/19 23:31 172/69 H 07/20/19 23:25 167/105 H 95 07/20/19 21:43 95 (1) Abdominal pain Abdominal location: epigastric Qualified Code(s): R10.13 - Epigastric pain
--- NOTE | 2019-07-21 12:15 | Ultrasound Report ---
US gallbladder CLINICAL HISTORY: 89 years-old Female presenting with distended gall bladder on ct scan, generalized abdominal pain. TECHNIQUE: Real-time grayscale and limited color Doppler ultrasound imaging of the abdomen limited to the right upper quadrant was performed. COMPARISON: CT performed yesterday. FINDINGS: Pancreas: Visualized portions of the pancreatic head and body normal. Liver: Mildly hyperechogenic parenchyma, although the right hemidiaphragm remains visible, likely ind icating mild steatosis. No sonographic evidence of hepatic mass. Biliary: No intrahepatic biliary ductal dilatation. Common bile duct measures up to 7 mm in diameter. Gallbladder: Gallbladder sludge. No evidence of gallstones, gallbladder wall thickening, gallbladder distention, or pericholecystic fluid or inflammatory change. Right kidney: Normal in appearance without evidence of hydronephrosis. Ascites: None. Other: None. IMPRESSION: 1. Gallbladder sludge. No cholelithiasis or biliary ductal dilatation. No convincing evidence of cho lecystitis. 2. Mild hepatic steatosis. ACT 112: Negative or not required by law. Electronically signed by: Lucius Laguna M.D. 07/21/2019 12:14 PM
--- NOTE | 2019-07-21 12:17 | Gastrointestinal Consultation ---
Date of Consultation July 21, 2019 Assessment & Plan (1) Abdominal pain: This is an 89 y/o female with PMHx T2DM, a-fib on Coumadin, heart failure with pacemaker in place, admitted yesterday for epigastric abd pain. Notable findings in her w/u include mild GB distention on CT, GB sludge seen on US without evidence for acute cholelithiasis, GB stone or biliary dilation, hyperglycemia, and minimally elevated AST with normal bilirubin; previously elevated lipase yesterday is now WNL. The etiology of her symptoms is unclear at this point but may be related to hyperglycemia. - Recommend continuing H2RA - Consider adding PPI if ongoing epigastric pain - Recommend pt improve glucose control with diet, medications - GI will sign off. Thank you for allowing us to participate in the care of this patient. Please call with any acute changes, questions or concerns. Please see addendum below with additional recommendation from my supervising physician. Supervising Physician Co-Signing Physician Notes Conservative management and follow clinically. History of Present Illness Reason for Consultation: epigastric abdominal pain, gallbladder distention Attending Physician: France Khanna, History of Present Illness This is an 89 y/o female with PMHx T2DM, a-fib on Coumadin, heart failure, pacemaker, who presented to the ER yesterday after developing epigastric abd pain, nausea and dry heaves. On arrival pt was found to have mildly elevated AST at 41, lipase 656, hyperglycemia; the rest of her labs including WBC, HGB, ALT, ALP, bilirubin were WNL. CTAP demonstrated mild GB distention without cholelithiasis, no mukesh dil. She was started on H2RA. Due to current coronavirus pandemic, chart was reviewed for consult; pt was not seen. Pt denied vomiting, melena, hematochezia, fever, chills, chest pain, dyspnea. On chart review, pt was admitted last month for a similar episode. Overnight she has remained hemodynamically stable and afebrile. Last BM was yesterday, brown. Repeat lipase this AM is WNL at 231. A RUQ done today revealed mild hepatic steatosis, CBD 7 mm, GB sludge but no stones, wall thickening, or pericholecystic fluid. Allergies Allergy/AdvReac Type Severity Reaction Status Date / Time dicyclomine Allergy Intermediate HIVES Verified 06/13/19 16:47 Sulfa (Sulfonamide Allergy Intermediate Vomiting Verified 06/13/19 16:47 Antibiotics) tramadol Allergy Intermediate GI SYMPTOMS Verified 06/13/19 16:47 lisinopril AdvReac Severe RENAL Verified 06/13/19 16:47 COMPLICATIONS PER [facility]. lorazepam AdvReac Intermediate Drowsy Verified 06/13/19 16:47 oxycodone AdvReac Intermediate STATES Verified 06/13/19 16:47 INCREASED SEDATION WITH SEVERE N/V=OXYCODONE phentermine AdvReac Mild NERVOUSNESS Verified 06/13/19 16:47 & CONSTIPATION Home Medications Home Medications Medication Instructions Recorded Confirmed Type atorvastatin 40 mg PO DAILY 01/07/18 07/20/19 History cholecalciferol (vitamin D3) 2,000 unit PO DAILY 01/07/18 07/20/19 History sennosides-docusate sodium 2 tab PO DAILY 01/07/18 07/20/19 History [Senna-S] digoxin 125 mcg PO DAILY 06/13/19 07/20/19 History furosemide [Lasix] See Rx Instructions .ROUTE .COMPLEX 06/13/19 07/20/19 History glimepiride 2 mg PO QDB 06/13/19 07/20/19 History metformin 500 mg PO BIDM 06/13/19 07/20/19 History metoprolol tartrate See Rx Instructions .ROUTE .COMPLEX 06/13/19 07/20/19 History spironolactone 12.5 mg PO 3XWK 06/13/19 07/20/19 History warfarin See Rx Instructions .ROUTE .COMPLEX 06/13/19 07/20/19 History Patient History Medical History MARKUS (acute kidney injury) Atrial fibrillation Chronic kidney disease Chronic respiratory failure with hypoxia and hypercapnia Congestive heart failure Deep vein thrombosis Dehydration Depression Diabetes mellitus type 2 in obese Diabetes mellitus, type 2 Do not resuscitate status Hypertension On home oxygen therapy Pacemaker Rheumatoid arthritis Valvular heart disease Surgical History History of hysterectomy History of total knee replacement Social History Preferred Language: [place] Communication Ability: Effective Visual Impairment: Limited Overnight Caregiver Required: No Beliefs That Will Affect Care: None Current Living Situation: Alone Other Information That Helps Us Care for You: No Feels Safe at Home: Yes Smoking Status: Never smoker Second Hand Exposure: Yes ; Hx Alcohol Use: Yes Alcohol type: wine Hx Substance Use: No Results & Data ([facility]) Vital Signs (Past 12 Hours) Vital Signs Temp Pulse Pulse Pulse Resp BP BP 07/21/19 11:34 36.4 C L 69 18 151/78 H 07/21/19 07:47 36.3 C L 62 18 136/74 07/21/19 07:37 72 07/21/19 04:00 36.6 C 83 20 146/77 H 07/21/19 03:50 85 07/21/19 03:20 36.4 C L 68 18 07/21/19 01:01 61 19 144/80 H 07/21/19 00:31 72 20 156/65 H BP Pulse Ox 07/21/19 11:34 97 07/21/19 07:47 97 07/21/19 07:37 07/21/19 04:00 94 07/21/19 03:50 07/21/19 03:20 139/83 93 07/21/19 01:01 97 07/21/19 00:31 97 Laboratory Results 07/21/19 07/21/19 07/21/19 Range/Units 11:59 06:40 06:40 WBC (4.8-10.8) K/uL RBC (4.2-5.4) M/uL Hgb (12.0-16.0) g/dL POC Hgb (12.0-16.0) g/dl Hct (37-47) % POC Hct (37-47) % MCV (80-100) fL MCH (25-34) pg MCHC (32-36) g/dL RDW Std Deviation (36.4-46.3) fL RDW Coeff of Irena (11.5-14.5) % Plt Count (130-400) K/uL MPV (7.4-10.4) fL Immature Gran % (Auto) % Neut % (Auto) % Lymph % (Auto) % Rich % (Auto) % Eos % (Auto) % Baso % (Auto) % Immature Gran # (Auto) (0.00-0.02) K/uL Neut # (Auto) (1.4-6.5) K/uL Lymph # (Auto) (1.2-3.4) K/uL Rich # (Auto) (0.11-0.59) K/uL Eos # (Auto) (0-0.5) K/uL Baso # (Auto) (0-0.2) K/uL PT (9.0-12.0) Seconds INR (0.9-1.1) POC Sodium (135-144) mmol/L Sodium 136 (136-145) mmol/L POC Potassium (3.3-5.0) mmol/L Potassium 4.0 (3.5-5.1) mmol/L POC Chloride (101-112) mmol/L Chloride 102 (98-107) mmol/L Carbon Dioxide 31 (21-32) mmol/L POC Total CO2 (24-31) mEq/l Anion Gap 3.0 (3-11) POC Anion Gap (16-25) mmol/L POC BUN (7-18) mg/dl BUN 31 H (7-18) mg/dl Creatinine 1.25 H (0.6-1.2) mg/dl POC Creatinine (0.6-1.3) mg/dl Est Cr Clr Drug Dosing 36.7 ml/min Est GFR ( Amer) 44.8 Est GFR (Non-Af Amer) 38.6 BUN/Creatinine Ratio 24.8 H (10-20) Glucose 187 H (70-99) mg/dl POC Glucose 196 H (70-99) mg/dl POC Glucose (other) (70-99) mg/dl Estimat Average Glucose 177 mg/dl Hemoglobin A1c 7.8 H (4.5-5.6) % Calcium 8.8 (8.5-10.1) mg/dl POC Ioniz Calcium Martin (1.12-1.32) mmol/l Magnesium 2.3 (1.8-2.4) mg/dl Total Bilirubin (0.2-1) mg/dl AST (15-37) U/L ALT (12-78) U/L Alkaline Phosphatase (45-117) U/L Troponin I 0.016 (0-0.045) ng/ml Total Protein (6.4-8.2) gm/dl Albumin (3.4-5.0) gm/dl Globulin (2.5-4.0) gm/dl Albumin/Globulin Ratio (0.9-2) Lipase 231 (73-393) U/L Urine Color Urine Appearance (Clear) Urine pH (4.5-7.5) Ur Specific [place] (1.000-1.030) Urine Protein (Negative) Urine Glucose (UA) (Negative) Urine Ketones (Negative) Urine Blood (Negative) Urine Nitrite (Negative) Urine Bilirubin (Negative) Urine Urobilinogen (Negative) Ur Leukocyte Esterase (Negative) Urine RBC (0-4) /hpf Urine WBC (0-5) /hpf Ur Epithelial Cells (0-5) /lpf Urine Bacteria (Negative) 07/21/19 07/21/19 07/21/19 Range/Units 06:40 06:40 06:07 WBC 6.55 (4.8-10.8) K/uL RBC 4.21 (4.2-5.4) M/uL Hgb 12.4 (12.0-16.0) g/dL POC Hgb (12.0-16.0) g/dl Hct 38.9 (37-47) % POC Hct (37-47) % MCV 92.4 (80-100) fL MCH 29.5 (25-34) pg MCHC 31.9 L (32-36) g/dL RDW Std Deviation 48.2 H (36.4-46.3) fL RDW Coeff of Irena 14.2 (11.5-14.5) % Plt Count 203 (130-400) K/uL MPV 11.0 H (7.4-10.4) fL Immature Gran % (Auto) 0.3 % Neut % (Auto) 61.4 % Lymph % (Auto) 33.1 % Rich % (Auto) 4.4 % Eos % (Auto) 0.6 % Baso % (Auto) 0.2 % Immature Gran # (Auto) 0.02 (0.00-0.02) K/uL Neut # (Auto) 4.02 (1.4-6.5) K/uL Lymph # (Auto) 2.17 (1.2-3.4) K/uL Rich # (Auto) 0.29 (0.11-0.59) K/uL Eos # (Auto) 0.04 (0-0.5) K/uL Baso # (Auto) 0.01 (0-0.2) K/uL PT 23.5 H (9.0-12.0) Seconds INR 2.3 H (0.9-1.1) POC Sodium (135-144) mmol/L Sodium (136-145) mmol/L POC Potassium (3.3-5.0) mmol/L Potassium (3.5-5.1) mmol/L POC Chloride (101-112) mmol/L Chloride (98-107) mmol/L Carbon Dioxide (21-32) mmol/L POC Total CO2 (24-31) mEq/l Anion Gap (3-11) POC Anion Gap (16-25) mmol/L POC BUN (7-18) mg/dl BUN (7-18) mg/dl Creatinine (0.6-1.2) mg/dl POC Creatinine (0.6-1.3) mg/dl Est Cr Clr Drug Dosing ml/min Est GFR ( Amer) Est GFR (Non-Af Amer) BUN/Creatinine Ratio (10-20) Glucose (70-99) mg/dl POC Glucose 195 H (70-99) mg/dl POC Glucose (other) (70-99) mg/dl Estimat Average Glucose mg/dl Hemoglobin A1c (4.5-5.6) % Calcium (8.5-10.1) mg/dl POC Ioniz Calcium Martin (1.12-1.32) mmol/l Magnesium (1.8-2.4) mg/dl Total Bilirubin (0.2-1) mg/dl AST (15-37) U/L ALT (12-78) U/L Alkaline Phosphatase (45-117) U/L Troponin I (0-0.045) ng/ml Total Protein (6.4-8.2) gm/dl Albumin (3.4-5.0) gm/dl Globulin (2.5-4.0) gm/dl Albumin/Globulin Ratio (0.9-2) Lipase (73-393) U/L Urine Color Urine Appearance (Clear) Urine pH (4.5-7.5) Ur Specific [place] (1.000-1.030) Urine Protein (Negative) Urine Glucose (UA) (Negative) Urine Ketones (Negative) Urine Blood (Negative) Urine Nitrite (Negative) Urine Bilirubin (Negative) Urine Urobilinogen (Negative) Ur Leukocyte Esterase (Negative) Urine RBC (0-4) /hpf Urine WBC (0-5) /hpf Ur Epithelial Cells (0-5) /lpf Urine Bacteria (Negative) 07/20/19 07/20/19 07/20/19 Range/Units 23:33 22:09 22:02 WBC (4.8-10.8) K/uL RBC (4.2-5.4) M/uL Hgb (12.0-16.0) g/dL POC Hgb 13.9 (12.0-16.0) g/dl Hct (37-47) % POC Hct 41 (37-47) % MCV (80-100) fL MCH (25-34) pg MCHC (32-36) g/dL RDW Std Deviation (36.4-46.3) fL RDW Coeff of Irena (11.5-14.5) % Plt Count (130-400) K/uL MPV (7.4-10.4) fL Immature Gran % (Auto) % Neut % (Auto) % Lymph % (Auto) % Rich % (Auto) % Eos % (Auto) % Baso % (Auto) % Immature Gran # (Auto) (0.00-0.02) K/uL Neut # (Auto) (1.4-6.5) K/uL Lymph # (Auto) (1.2-3.4) K/uL Rich # (Auto) (0.11-0.59) K/uL Eos # (Auto) (0-0.5) K/uL Baso # (Auto) (0-0.2) K/uL PT (9.0-12.0) Seconds INR (0.9-1.1) POC Sodium 137 (135-144) mmol/L Sodium 135 L (136-145) mmol/L POC Potassium 3.9 (3.3-5.0) mmol/L Potassium 3.9 (3.5-5.1) mmol/L POC Chloride 98 L (101-112) mmol/L Chloride 100 (98-107) mmol/L Carbon Dioxide 29 (21-32) mmol/L POC Total CO2 28 (24-31) mEq/l Anion Gap 6.0 (3-11) POC Anion Gap 15.0 L (16-25) mmol/L POC BUN 33 H (7-18) mg/dl BUN 35 H (7-18) mg/dl Creatinine 1.34 H (0.6-1.2) mg/dl POC Creatinine 1.3 (0.6-1.3) mg/dl Est Cr Clr Drug Dosing 34.6 ml/min Est GFR ( Amer) 41.2 Est GFR (Non-Af Amer) 35.5 BUN/Creatinine Ratio 25.7 H (10-20) Glucose 191 H (70-99) mg/dl POC Glucose (70-99) mg/dl POC Glucose (other) 190 H (70-99) mg/dl Estimat Average Glucose mg/dl Hemoglobin A1c (4.5-5.6) % Calcium 9.4 (8.5-10.1) mg/dl POC Ioniz Calcium Martin 1.10 L (1.12-1.32) mmol/l Magnesium (1.8-2.4) mg/dl Total Bilirubin 0.5 (0.2-1) mg/dl AST 41 H (15-37) U/L ALT 27 (12-78) U/L Alkaline Phosphatase 78 (45-117) U/L Troponin I < 0.015 (0-0.045) ng/ml Total Protein 8.3 H (6.4-8.2) gm/dl Albumin 3.8 (3.4-5.0) gm/dl Globulin 4.5 H (2.5-4.0) gm/dl Albumin/Globulin Ratio 0.8 L (0.9-2) Lipase 656 H (73-393) U/L Urine Color Yellow Urine Appearance Clear (Clear) Urine pH 6.5 (4.5-7.5) Ur Specific [place] 1.010 (1.000-1.030) Urine Protein Negative (Negative) Urine Glucose (UA) Negative (Negative) Urine Ketones Negative (Negative) Urine Blood 1+ H (Negative) Urine Nitrite Negative (Negative) Urine Bilirubin Negative (Negative) Urine Urobilinogen Negative (Negative) Ur Leukocyte Esterase Negative (Negative) Urine RBC 10-30 H (0-4) /hpf Urine WBC 0-5 (0-5) /hpf Ur Epithelial Cells 10-20 H (0-5) /lpf Urine Bacteria Negative (Negative) 07/20/19 Range/Units 22:02 WBC 7.66 (4.8-10.8) K/uL RBC 4.43 (4.2-5.4) M/uL Hgb 13.3 (12.0-16.0) g/dL POC Hgb (12.0-16.0) g/dl Hct 41.4 (37-47) % POC Hct (37-47) % MCV 93.5 (80-100) fL MCH 30.0 (25-34) pg MCHC 32.1 (32-36) g/dL RDW Std Deviation 48.2 H (36.4-46.3) fL RDW Coeff of Irena 14.1 (11.5-14.5) % Plt Count 220 (130-400) K/uL MPV 10.8 H (7.4-10.4) fL Immature Gran % (Auto) 0.4 % Neut % (Auto) 68.6 % Lymph % (Auto) 23.6 % Rich % (Auto) 5.9 % Eos % (Auto) 1.4 % Baso % (Auto) 0.1 % Immature Gran # (Auto) 0.03 H (0.00-0.02) K/uL Neut # (Auto) 5.25 (1.4-6.5) K/uL Lymph # (Auto) 1.81 (1.2-3.4) K/uL Rich # (Auto) 0.45 (0.11-0.59) K/uL Eos # (Auto) 0.11 (0-0.5) K/uL Baso # (Auto) 0.01 (0-0.2) K/uL PT (9.0-12.0) Seconds INR (0.9-1.1) POC Sodium (135-144) mmol/L Sodium (136-145) mmol/L POC Potassium (3.3-5.0) mmol/L Potassium (3.5-5.1) mmol/L POC Chloride (101-112) mmol/L Chloride (98-107) mmol/L Carbon Dioxide (21-32) mmol/L POC Total CO2 (24-31) mEq/l Anion Gap (3-11) POC Anion Gap (16-25) mmol/L POC BUN (7-18) mg/dl BUN (7-18) mg/dl Creatinine (0.6-1.2) mg/dl POC Creatinine (0.6-1.3) mg/dl Est Cr Clr Drug Dosing ml/min Est GFR ( Amer) Est GFR (Non-Af Amer) BUN/Creatinine Ratio (10-20) Glucose (70-99) mg/dl POC Glucose (70-99) mg/dl POC Glucose (other) (70-99) mg/dl Estimat Average Glucose mg/dl Hemoglobin A1c (4.5-5.6) % Calcium (8.5-10.1) mg/dl POC Ioniz Calcium Martin (1.12-1.32) mmol/l Magnesium (1.8-2.4) mg/dl Total Bilirubin (0.2-1) mg/dl AST (15-37) U/L ALT (12-78) U/L Alkaline Phosphatase (45-117) U/L Troponin I (0-0.045) ng/ml Total Protein (6.4-8.2) gm/dl Albumin (3.4-5.0) gm/dl Globulin (2.5-4.0) gm/dl Albumin/Globulin Ratio (0.9-2) Lipase (73-393) U/L Urine Color Urine Appearance (Clear) Urine pH (4.5-7.5) Ur Specific [place] (1.000-1.030) Urine Protein (Negative) Urine Glucose (UA) (Negative) Urine Ketones (Negative) Urine Blood (Negative) Urine Nitrite (Negative) Urine Bilirubin (Negative) Urine Urobilinogen (Negative) Ur Leukocyte Esterase (Negative) Urine RBC (0-4) /hpf Urine WBC (0-5) /hpf Ur Epithelial Cells (0-5) /lpf Urine Bacteria (Negative) (1) Abdominal pain Abdominal location: epigastric Qualified Code(s): R10.13 - Epigastric pain
--- NOTE | 2019-07-21 13:55 | Electrocardiogram Report ---
Test Reason : Blood Pressure : / mmHG Vent. Rate : 077 BPM Atrial Rate : 214 BPM P-R Int : 000 ms QRS Dur : 154 ms QT Int : 430 ms P-R-T Axes : 000 -46 -54 degrees QTc Int : 486 ms Atrial fibrillation with occasional ventricular-paced complexes and with premature ventricular or gilberto rrantly conducted complexes Right bundle branch block Left anterior fascicular block Bifascicular block T wave abnormality, consider inferolateral ischemia Abnormal ECG When compared with ECG of 13-JUN-2019 16:07, Vent. rate has increased BY 9 BPM Confirmed by Price Torres ([id number]) on 07/21/2019 1:55:16 PM Referred By: REFERRED SELF Confirmed By:Real Torres
--- NOTE | 2019-07-21 14:55 | Hospitalist Progress Note ---
Date of Service July 21, 2019 Assessment & Plan (1) Abdominal discomfort: Uncertain cause and she has reported having this in the past with a similar quality of discomfort. It is currently resolved and she is asking for food. Lipase was elevated at 656 yesterday and has resolved to 231 this morning. She does report a daily bowel movement, only states this is lesser in amount than normal. Appreciate GI input. Agree with the need for tighter control of blood sugar as an outpatient. Also, plan to continue with Pepcid BID for now. Will switch to PO version. If ongoing abdominal discomfort as outpatient, PCP may consider PPI. Cont current bowel regimen. (2) Vomiting: resolved and currently asking for food. (3) Chronic atrial fibrillation: Stable A. fib overnight with a heart rate in the 60s to 70s on telemetry. Continue digoxin, Lopressor, Coumadin per home regimen. (4) Chronic right heart failure: Compensated. Appreciate cardiology input. Continue Lasix and Spironolactone per home regimen. (5) Diabetes mellitus type 2, uncontrolled: Slightly uncontrolled with hemoglobin A1c of 7.8. This is improved from 1 month ago at 8.8. Continue positive efforts for outpatient blood sugar control with respect to diet and exercise. Glimepiride and metformin on hold while patient is in the hospital and will continue with NovoLog with correction factor and carb coverage. We will also add basal insulin with Lantus at 15 units nightly. (6) DVT prophylaxis: Anticoagulated on Coumadin Full code Disposition-to home in a.m. Will remove telemetry monitoring at this time. France Khanna DO [facility] Hospitalist Admission and Anticipated Discharge Date Admission Date: July 21, 2019 Anticipated date of discharge: 07/22/19 Subjective 89-year-old female presented to the ER with abdominal discomfort, diaphoresis, increased belching and shakiness. She reports some vomiting at home without evidence of fevers or changes in her stool. She states she has been constipated for the last few days. Where she has been having daily bowel movements is not been her normal amount. She reports having the symptoms in the past including abdominal discomfort that was the same quality and intensity associated with diaphoresis and shakiness and in fact reports having the symptoms 1 month ago. However, she typically takes Tums with successful resolution of her symptoms. However, last night this did not improve her situation. Although she was not concerned about having a heart attack, her son convinced her the symptoms were consistent with a possible ACS. She was admitted to the hospitalist service and serial cardiac enzymes were trended overnight and negative. Her EKG demonstrated atrial fibrillation with a right bundle branch block which is unchanged compared to prior studies. Cardiology was consulted and recommended there was no evidence of acute coronary syndrome and she should continue her outpatient diuretic regimen with Lasix and Aldactone for treatment of her compensated right heart failure. No further cardiac testing was recommended at this time. She reports having some persistent nausea today and has yet to eat any food. She is reporting some hunger. She denies any epigastric discomfort at this time. Abdominal exam is benign. She otherwise denies any symptoms at this time. Review of Systems Review of Systems: All systems reviewed & are unremarkable except as noted in Subjective Physical Exam Physical Exam: CONSTITUTIONAL: obese, vitals as above, generally well- appearing EYES: normal conjunctivae, no scleral icterus ENT: external ear and nose normal, oropharynx clear, MMM RESPIRATORY: clear to auscultation bilaterally, no crackles, rales or wheezes, normal respiratory effort CARDIOVASCULAR: regular rate and rhythm, S1 and 2 heard without murmurs, gallops or rubs, no JVD, no peripheral edema GASTROINTESTINAL: normal bowel sounds, soft nontender, nondistended, no guarding. MUSCULOSKELETAL: strength 5/5 throughout, head is normocephalic and atraumatic, able to sit up in bed on her own. SKIN: warm and dry NEUROLOGIC: CN 2-12 grossly intact, normal cognition, normal speech, no tremor, no gross focal deficits. PSYCHIATRIC: alert cooperative and oriented to person, place and time. Results & Data Results & Data ([facility]) Vital Signs (Past 12 Hours) Vital Signs Temp Pulse Pulse Pulse Resp BP BP 07/21/19 11:34 36.4 C L 69 18 151/78 H 07/21/19 07:47 36.3 C L 62 18 136/74 07/21/19 07:37 72 07/21/19 04:00 36.6 C 83 20 146/77 H 07/21/19 03:50 85 07/21/19 03: 36.4 C L 68 18 139/83 Pulse Ox 07/21/19 11:34 97 07/21/19 07:47 97 07/21/19 07:37 07/21/19 04:00 94 07/21/19 03:50 07/21/19 03:20 93 Laboratory Results Short CBC 07/20/19 07/21/19 Range/Units 22:02 06:40 WBC 7.66 6.55 (4.8-10.8) K/uL Hgb 13.3 12.4 (12.0-16.0) g/dL Hct 41.4 38.9 (37-47) % Plt Count 220 203 (130-400) K/uL BMP 07/20/19 07/21/19 22:02 06:40 Sodium 135 L 136 Potassium 3.9 4.0 Chloride 100 102 Carbon Dioxide 29 31 BUN 35 H 31 H Creatinine 1.34 H 1.25 H Glucose 191 H 187 H Calcium 9.4 8.8 Cardiac Enzymes 07/20/19 07/21/19 Range/Units 22:02 06:40 Troponin I < 0.015 0.016 (0-0.045) ng/ml Liver Function 07/20/19 Range/Units 22:02 Total Bilirubin 0.5 (0.2-1) mg/dl AST 41 H (15-37) U/L ALT 27 (12-78) U/L Alkaline Phosphatase 78 (45-117) U/L Albumin 3.8 (3.4-5.0) gm/dl Urine 07/20/19 Range/Units 23:33 Urine Color Yellow Urine Appearance Clear (Clear) Urine pH 6.5 (4.5-7.5) Ur Specific [place] 1.010 (1.000-1.030) Urine Protein Negative (Negative) Urine Glucose (UA) Negative (Negative) Medications Administered Current Inpatient Medications Acetaminophen (Tylenol) 650 mg PO Q4H PRN PRN Reason: Pain or Fever Stop: 08/20/19 03:05 Atorvastatin Calcium (Lipitor) 40 mg PO DAILY RAHEL Stop: 08/20/19 08:59 Last Admin: 07/21/19 07:55 Dose: 40 mg Documented by: Dextrose (Dextrose 50%) 25 - 50 ml IV UD PRN; Protocol PRN Reason: Hypoglycemia Protocol Stop: 08/20/19 03:29 Digoxin (Lanoxin) 0.125 mg PO DAILY@1600 [facility] Stop: 08/20/19 15:59 Furosemide (Lasix) 80 mg PO QAM RAHEL Stop: 08/20/19 08:59 Last Admin: 07/21/19 07:55 Dose: 80 mg Documented by: Furosemide (Lasix) 80 mg PO Q48H RAHEL Stop: 08/20/19 16:59 Furosemide (Lasix) 40 mg PO Q48H RAHEL Stop: 08/21/19 16:59 Glucagon (Glucagen) 1 mg IM UD PRN; Protocol PRN Reason: Hypoglycemia Protocol Stop: 08/20/19 03:29 Glucose (Glucose 40%) 15 - 30 gm PO UD PRN; Protocol PRN Reason: Hypoglycemia Protocol Stop: 08/20/19 03:29 Glucose (Dex4 Glucose) 4 - 8 tabs PO UD PRN; Protocol PRN Reason: Hypoglycemia Protocol Stop: 08/20/19 03:29 Famotidine 20 mg/ Syringe 5 mls @ 2.5 mls/min IV BID RAHEL Stop: 08/20/19 08:59 Last Admin: 07/21/19 07:55 Dose: 2.5 mls/min Documented by: Sodium Chloride (Nss 1000ml) 1,000 mls @ 100 mls/hr IV .Q10H RAHEL Stop: 08/20/19 03:05 Last Admin: 07/21/19 12:25 Dose: 100 mls/hr Documented by: Insulin Aspart (Novolog Flexpen) 0 units SC Q6 RAHEL Stop: 08/20/19 05:59 Last Admin: 07/21/19 12:13 Dose: 2 units Documented by: Metoprolol Tartrate (Lopressor) 100 mg PO QAM RAHEL Stop: 08/20/19 08:59 Last Admin: 07/21/19 07:55 Dose: 100 mg Documented by: Metoprolol Tartrate (Lopressor) 50 mg PO QPM RAHEL Stop: 08/20/19 20:59 Miscellaneous (Carbohydrates For Hypoglycemia) 15 - 30 gm PO UD PRN PRN Reason: Hypoglycemia Treatment Stop: 08/20/19 03:29 Morphine Sulfate (Morphine Sulfate) 2 mg IV Q4H PRN PRN Reason: Pain Stop: 08/04/19 03:05 Nitroglycerin (Nitrostat) 0.4 mg SL UD PRN PRN Reason: Chest Pain Stop: 08/20/19 03:05 Ondansetron HCl (Zofran) 4 mg IV Q6H PRN PRN Reason: Nausea Stop: 08/20/19 03:05 Last Admin: 07/21/19 12:25 Dose: 4 mg Documented by: Polyethylene Glycol (Miralax Powder Packet) 17 gm PO DAILY PRN PRN Reason: Constipation Stop: 08/20/19 03:05 Senna/Docusate Sodium (Senokot S) 2 tab PO DAILY [facility] Stop: 08/20/19 08:59 Last Admin: 07/21/19 07:56 Dose: 2 tab Documented by: Spironolactone (Aldactone) 12.5 mg PO MoWeFr@0900 [facility] Stop: 08/20/19 08:59 Last Admin: 07/21/19 07:54 Dose: 12.5 mg Documented by: Vitamin D (Vitamin D3) 2,000 units PO DAILY [facility] Stop: 08/20/19 08:59 Last Admin: 07/21/19 07:56 Dose: 2,000 units Documented by: Warfarin Sodium (Coumadin) 7.5 mg PO TuFr@1600 [facility] Stop: 08/22/19 15:59 Warfarin Sodium (Coumadin) 5 mg PO SuMoWeThSa@1600 [facility] Stop: 08/20/19 15:59
[2019-07-21] MEDS ORDERED: DIGOXIN 0.125 MG TAB PO SCH (16:00)
[2019-07-21] MEDS ORDERED: WARFARIN SOD 5 MG TAB PO SCH (16:00)
[2019-07-21] MEDS ORDERED: FUROSEMIDE 80 MG TAB PO SCH (17:00)
[2019-07-21] MEDS ORDERED: FAMOTIDINE 20 MG TAB PO PRN (18:27)
[2019-07-21] MEDS ORDERED: INSULIN GLARGINE SOLOSTAR 100 UNITS/ML 3 ML PEN SC SCH (21:00)
[2019-07-21] MEDS ORDERED: METOPROLOL TARTRATE 100 MG TAB PO SCH (21:00)
[2019-07-22 06:16] LABS: Hematocrit (blood only) 39.2 % (37-47); Hemoglobin 12.3 g/dL (12.0-16.0); Mean Corpuscular Hemoglobin 29.3 pg (25-34); Mean Corpuscular Hgb Conc 31.4 g/dL (32-36); Mean Corpuscular Volume 93.3 fL (80-100); Mean Platelet Volume 10.8 fL (7.4-10.4); Platelet Count 197 K/uL (130-400); RDW Coefficient of Variation 14.3 % (11.5-14.5); RDW Standard Deviation 48.7 fL (36.4-46.3); White Blood Count 6.05 K/uL (4.8-10.8)
[2019-07-22 06:25] LABS: INR 2.6 (0.9-1.1); Prothrombin Time 25.6 Seconds (9.0-12.0)
[2019-07-22 06:46] LABS: BUN Creatinine Ratio 20.8 (10-20); Calcium 8.6 mg/dl (8.5-10.1); Creatinine Clr Calc Pharmacy 41.4 ml/min; Est GFR (African American) 51.7; Est GFR (Non-African American) 44.6; Potassium 3.5 mmol/L (3.5-5.1)
[2019-07-22] MEDS: METOPROLOL TARTRATE 100 MG TAB PO SCH (08:05)
[2019-07-22] MEDS: DOCUSATE SODIUM/SENNA 50/8.6MG TAB PO SCH (08:05)
[2019-07-22] MEDS: CHOLECALCIFEROL 1,000 UNITS 25 MCG TAB PO SCH (08:05)
[2019-07-22] MEDS: ATORVASTATIN 40 MG TAB PO SCH (08:05)
[2019-07-22] MEDS: FUROSEMIDE 80 MG TAB PO SCH (08:05)
[2019-07-22] MEDS: INSULIN ASPART 100 UNITS/ML 3 ML PEN SC SCH ×2 (08:06→12:07)
--- NOTE | 2019-07-22 10:42 | Cardiology Progress Note ---
Date of Service July 22, 2019 Assessment & Plan (1) Chronic right heart failure: (2) Chronic respiratory failure with hypoxia and hypercapnia: (3) Pickwickian syndrome: (4) Chronic atrial fibrillation: (5) Pacemaker: (6) Abdominal pain: (7) Nausea: Abdominal discomfort improved with bowel movement. Appears compensated from a heart failure perspective. Chronic atrial fibrillation is rate controlled and she is appropriately anticoagulated with Coumadin. Continue outpatient diuretic regimen with Lasix and Aldactone. Dose Coumadin with 7.5 mg on Tuesdays and Fridays, 5 mg all other day. Goal INR 2.0- 3.0. No further inpatient cardiovascular testing or intervention. Cardiology will sign off. Patient will follow-up as scheduled in the clinic September 2019. Subjective Patient seen and examined at the bedside. Denies chest pain or unusual shortness of breath. Patient had bowel movement yesterday with marked improvement of abdominal discomfort. Denies recurrent nausea or vomiting. No orthopnea, PND, or palpitations. No signs/symptoms of GI/ blood loss. Review of Systems Review of Systems: All systems reviewed & are unremarkable except as noted in HPI & below Physical Exam Constitutional: well developed, well nourished and + obese Respiratory: normal respiratory effort; no respiratory distress and no labored breathing Auscultation: no crackles, no rales, no rhonchi and no wheezes Cardiovascular: Rate/Rhythm: + irregularly irregular Heart Sounds: normal S1 and normal S2; no murmur and no cardiac rub Vessels: + JVD; no carotid bruit Extremities: + edema (Trace bilateral pedal and ankle edema) Gastrointestinal (Abdomen): Inspection/Auscultation: abdomen normal to inspection and normal bowel sounds; abdomen not distended Percussion/Palpation: abdomen soft; abdomen nontender, no guarding and abdomen not rigid Musculoskeletal: no cyanosis or clubbing, extremities motor strength 5/5 Head/Neck/Chest: normocephalic and head atraumatic Skin: no rashes, warm and dry Neurologic: moves all extremities; no focal motor deficits Psychiatric: A+Ox3, euthymic affect Results & Data Vital Signs (Past 12 Hours) Vital Signs Temp Pulse Resp BP Pulse Ox 07/22/19 07:41 36.5 C 69 18 145/83 H 95 07/22/19 00:23 36.3 C L 61 18 116/70 97 (1) Abdominal pain Abdominal location: epigastric Qualified Code(s): R10.13 - Epigastric pain
--- NOTE | 2019-07-22 14:19 | Discharge Summary ---
Date of Service July 22, 2019 Admission HPI Per Admitting Provider HISTORY OF PRESENT ILLNESS: This is an 89-year-old female with past medical history significant for type 2 diabetes, hyperlipidemia, chronic respiratory failure with hypoxia on home oxygen therapy, diastolic heart failure, severe pulmonary hypertension, chronic atrial fibrillation, chronic right-sided heart failure, Raynaud syndrome, severe tricuspid and severe pulmonary regurgitation, hypertension, obesity, venous stasis dermatitis, status post cardiac pacemaker, who presents with epigastric abdominal pain. The patient lives alone in an apartment. Son and granddaughter live close by. She says around 4:30, she had epigastric abdominal pain. Blood pressure was going up and she was diaphoretic. She is also having dry heaving. Says she has dry heaving for a long time, but whenever she gets it Tums helps her, but today Tums did not help her. As she was not getting better, she came to the ER. In the ER,lab work was unremarkable except lipase was elevated at 656. Troponin was negative. EKG shows some T-wave inversions in inferior and lateral leads which mostly seemed old.. Currently, her abdominal pain is resolved, but she is feeling fatigue and mild headache. Denies any shortness of breath. No cough, no fever, no chills, no runny nose, no sore throat, no earaches, no blurred visions. She takes stool softeners for constipation. She says she moved her bowels today and it was normal. No blood in the stools or black stools. Normal bladder movements. Appetite is good. Walks without any support. She has chronic lower extremity edema. She keeps her legs elevated when she is sleeping. She is on diuretics. Currently resting comfortably and hemodynamically stable. Admission Exam Per Admitting Provider PHYSICAL EXAMINATION: GENERAL: The patient is obese, not in acute distress. VITAL SIGNS: Temperature 36.6, pulse 75, respiratory rate 18, blood pressure 172/69, oxygen 95% on 2 liters. HEENT: No pallor, no icterus. Pupils equal, round, and reactive to light. NECK: No JVD, no neck mass, no carotid bruits. CARDIOVASCULAR: S1, S2 heard, regular rate and rhythm, no murmur, no gallop. RESPIRATORY SYSTEM: Normal AP diameter. No accessory muscle use. No wheezing, no crackles. ABDOMEN: Soft, bowel sounds present. Epigastric tenderness present. No guarding, no rigidity, no distention. CENTRAL NERVOUS SYSTEM: Cranial nerves II-XII grossly intact, nonfocal. EXTREMITIES: Lower extremity edema present, no erythema seen. Principal Diagnosis Abdominal discomfort possibly 2/2 acid reflux DM II Discharge Exam CONSTITUTIONAL: obese, vitals as above, generally well-appearing EYES: normal conjunctivae, no scleral icterus ENT: external ear and nose normal, oropharynx clear, MMM RESPIRATORY: clear to auscultation bilaterally, no crackles, rales or wheezes, normal respiratory effort CARDIOVASCULAR: regular rate and rhythm, S1 and 2 heard without murmurs, gallops or rubs, no JVD, no peripheral edema GASTROINTESTINAL: normal bowel sounds, soft nontender, nondistended, no guarding. MUSCULOSKELETAL: strength 5/5 throughout, head is normocephalic and atraumatic SKIN: warm and dry NEUROLOGIC: CN 2-12 grossly intact, normal cognition, normal speech, no tremor, no gross focal deficits. PSYCHIATRIC: alert cooperative and oriented to person, place and time. Discharge Data Allergies Allergy/AdvReac Type Severity Reaction Status Date / Time dicyclomine Allergy Intermediate HIVES Verified 06/13/19 16:47 Sulfa (Sulfonamide Allergy Intermediate Vomiting Verified 06/13/19 16:47 Antibiotics) tramadol Allergy Intermediate GI SYMPTOMS Verified 06/13/19 16:47 lisinopril AdvReac Severe RENAL Verified 06/13/19 16:47 COMPLICATIONS PER [facility]. lorazepam AdvReac Intermediate Drowsy Verified 06/13/19 16:47 oxycodone AdvReac Intermediate STATES Verified 06/13/19 16:47 INCREASED SEDATION WITH SEVERE N/V=OXYCODONE phentermine AdvReac Mild NERVOUSNESS Verified 06/13/19 16:47 & CONSTIPATION Consultations 07/20/19 23:27 ED Decision to Admit Stat 07/21/19 03:06 Consult Case Management - Discharge Planning Routine 07/21/19 08:00 Consult Cardiology Routine Consult Gastroenterology Routine Ordered Studies 07/20/19 21:44 CT abd pelvis IV con only Stat 07/21/19 09:30 US gallbladder Routine Hospital Course (1) Abdominal discomfort: (2) GERD (gastroesophageal reflux disease): (3) Diabetes mellitus type 2, uncontrolled: 89-year-old female with a history of type 2 diabetes presented with abdominal discomfort with associated sweating and tremulousness. She reported having this in the past, which was typically improved after taking Tums. However, this home treatment did not improve her symptoms, prompting presentati on. An EKG demonstrated atrial fibrillation with a right bundle branch block which was unchanged compared to prior studies. Serial cardiac enzymes were trended and negative and she remained on telemetry overnight with no alarm events. Cardiology was consulted and felt there was no evidence of acute coronary syndrome. He recommended she continue her outpatient diuretic regimen with Lasix and Aldactone for treatment of her compensated right heart failure. No further cardiac testing was recommended in the hospital. The following day her abdominal discomfort did improve, and this was after she received some scheduled Pepcid. She was able to tolerate solid food without issue consistently for > 24 hours prior to discharge. Her A1c is 7.8 which is around the goal for her age, however, it was entertained that uncontrolled diabetes may be contributing to her abdominal discomfort symptoms. Close primary care follow-up was recommended to elucidate a clear etiology here. For now we will give Pepcid to use as needed for any breakthrough abdominal discomfort, and can encourage the patient and her son to discuss chronic PPI use further with her PCP on follow-up. Further studies included a CT of the abdomen pelvis which revealed no evidence of acute intra-abdominal changes. Mild gallbladder distention was seen on CT with gallbladder sludge seen on ultrasound without evidence for acute cholelithiasis, gallbladder stone or biliary ductal dilation. She had a minimally elevated AST on lab work with a normal bilirubin. Her initial lipase was slightly elevated around 600 and was normal the following day. At time of discharge she was hemodynamically stable and afebrile and tolerating p.o. She was mentating and ambulating at baseline and she was sent home in stable condition. Total Time Total Time Spent Total Time Spent (In Minutes): 60 Total Time Includes: Examination of the Patient, Discharge Planning, Medication Reconciliation and Communication With Other Providers Discharge Plan Discharge Items Patient Disposition: Home - Self-Care Reason For Visit: abdominal pain Discharge Diagnosis: Abdominal discomfort possibly 2/2 acid reflux DMII Condition on Discharge: Good Activity: Resume your previous activity Non-emergency contact: Primary Care Provider Call non-emergency contact if: you have any medication questions, your symptoms worsen, your pain is not controlled, your pain is worsening, your pain is unusual for you, your pain is concerning for you and you have a fever Follow-up/Referrals: Gely Gutierrez DO [Primary Care Provider] - 07/26/19 11:20 am (07/26/2019 11:20 AM with Thomas Livingston MD Internal Medicine [facility] ) Diet: Carb Consistent or DM2 and Low Sodium (2gm) Addtl Attending Provider Instructions: Please take all medications as instructed on discharge list below. It is recommended that you follow-up with your primary care physician (PCP) within a few weeks to discuss consideration of starting a medication for acid reflux. You are scheduled at the time/date above. It was a pleasure taking care of you! Please call if you have any questions or problems. You can reach a [facility] hospitalist on duty at [facility] 24 hours a day by calling [phone]. Take care of yourself. France Khanna [facility] P[facility] Studies at Discharge: No Stand-Alone Forms: My [facility], Smoking Cessation Medications and DC Order Prescriptions: New famotidine [Pepcid] 20 mg tablet 20 mg PO BID PRN (Reason: abdominal discomfort) Qty: 60 RF: 1 Continued atorvastatin 40 mg Tablet 40 mg PO DAILY RF: 0 sennosides-docusate sodium [Senna-S] 8.6-50 mg Tablet 2 tab PO DAILY RF: 0 cholecalciferol (vitamin D3) 2,000 unit Capsule 2,000 unit PO DAILY RF: 0 metformin 500 mg Tablet 500 mg PO BIDM RF: 0 metoprolol tartrate 100 mg Tablet See Rx Instructions .ROUTE .COMPLEX RF: 0 warfarin 2.5 mg Tablet See Rx Instructions .ROUTE .COMPLEX RF: 0 spironolactone 25 mg Tablet 12.5 mg PO 3XWK RF: 0 glimepiride 2 mg Tablet 2 mg PO QDB RF: 0 furosemide [Lasix] 80 mg Tablet See Rx Instructions .ROUTE .COMPLEX RF: 0 digoxin 125 mcg (0.125 mg) Tablet 125 mcg PO DAILY RF: 0 Discharge Orders: Discharge Order (Routine); Ordered 07/22/19 Ordered By: France Khanna Admission Data Admit Date/Time: 07/21/19 00:16 Attending Provider: France Khanna Admit Provider: Wili Jang Primary Care Provider: Gely Gutierrez Other Providers: Wili Jang ; Gaudencio August ; Fitz Villasenor ; George Mtz ; Uriel Medrano ; Favian Whitehead ; Corey Nguyen ; Rossy Esteban ; Kary Hernandez ; Abelino Terry ; Lara Trevino ; Rupali Craig ; Mandeep Louie ; Nisa Dave ; Tomas Phelps ; Damion Aaron ; Olivia Strong ; Mansi Franks ; Jules Guerra ; Tye Medina ; Debby Aldrich ; Jeanne Howell ; Cheryl Bauer ; Charlotte Ruelas ; Uli Ward ; [place] Other Interventions: Discharge Summary Assessment (RN) Last Done: 07/22/19 12:24
[2019-07-22] MEDS ORDERED: FUROSEMIDE 80 MG TAB PO SCH (17:00)
[2019-07-23] MEDS ORDERED: WARFARIN SOD 7.5 MG TAB PO SCH (16:00)
== END 2019-07-22 15:03 | disposition home health service (06) | DRG 392 ==
LOC: ED 21:33 → 2N 07-21 00:16